=== PATIENT | female | born 1960 | race Hispanic/Latino ===

== ENCOUNTER 2020-07-23 00:15 | Emergency (ER) | payer OTHER, SELFPAY ==
[2020-07-23] VITALS (9 sets, daily range): BP systolic 115–138; BP diastolic 53–79; PULSE 81–118; RESP 18–22; TEMP 36.6; O2SAT 98–100
--- NOTE | ~2020-07-23 | CT_ITS ---
EXAMINATION: CTA brain carotid DATE: 07/23/2020 02:02 INDICATION: Dizziness. Photophobia. Weakness. TECHNIQUE: Computed tomographic angiography (CTA) of the head was performed without and with 100 mL O mnipaque-350 intravenous contrast. CTA of the neck was performed with intravenous contrast. Automated exposure control and iterative reconstruction technique were employed. The dose-length product was 1 563.40 mGy-cm. Maximum intensity projection and volume rendered 3D-reconstructions were created by william rowan technologist on a separate workstation. COMPARISON: Head CT 09/26/2012 FINDINGS: HEAD CTA: There is no intracranial hemorrhage, acute infarction, or abnormal intracranial mass lesion . The ventricles are normal in size. There is mild mucosal thickening in the ethmoid sinuses. The mas toid air cells are normal. The orbits are normal. The vertebral arteries are codominant. There is no significant stenosis of basilar artery or the posterior cerebral arteries. There is no significant st enosis of the intracranial internal carotid arteries or anterior or middle cerebral arteries. Anterio r communicating artery is normal. Right posterior communicating artery is normal. A left posterior co mmunicating artery is not identified. There is no aneurysm. NECK CTA: There are no pathologically enlarged lymph nodes. There is no significant stenosis of the v ertebral arteries. There is no visible plaque in the proximal internal carotid arteries. There is 0% stenosis of the proximal right internal carotid artery relative to normal distal artery lumen diamete r (NASCET criteria). There is 0% stenosis of the proximal left internal carotid artery relative to no rmal distal artery lumen diameter. There is moderate cervical spondylosis. IMPRESSION: 1. Normal brain. No aneurysm or significant intracranial arterial stenosis. 2. 0% stenosis of the proximal internal carotid arteries relative to normal distal artery lumen diam eters (NASCET criteria). Reviewed, dictated and finalized at location A. IMPRESSION: 1. Normal brain. No aneurysm or significant intracranial arterial stenosis. 2. 0% stenosis of the proximal internal carotid arteries relative to normal di stal artery lumen diameters (NASCET criteria).
--- NOTE | 2020-07-23 00:52 | ECG_ITS ---
Measurements Intervals [place] Rate: 101 P: 56 OK: 184 QRS: 14 QRSD: 80 T: 30 QT: 338 QTc: 439 Interpretive Statements SINUS TACHYCARDIA BORDERLINE R WAVE PROGRESSION, ANTERIOR LEADS BORDERLINE ECG Electronically Signed On 07-23-2020 7:15:06 CDT by Issa Richey D.O.
[2020-07-23 01:06] LABS: Basophils Percent Auto 0.5 % (0.2-1.2); Eosinophils Absolute Auto 0.1 K/mm3 (0-0.3); Eosinophils Percent Auto 1.7 % (0-4.4); Hematocrit 32.1 % (37.0-47.0); Hemoglobin 10.3 g/dL (12.0-15.0); Immature Granulocyte Absolute 0.01 K/mm3 (0.00-0.031); Immature Granulocyte Percent A 0.2 % (0-0.5); Lymphocytes Absolute Auto 2.16 K/mm3 (0.9-3.2); Lymphocytes Percent Auto 36.4 % (18.3-44.2); Mean Corpuscular HGB Conc 32.1 g/dl (32-36); Mean Corpuscular Hemoglobin 28.5 pg (26-34); Mean Corpuscular Volume 88.9 fl (80-100); Mean Platelet Volume 8.5 fl (7.4-10.4); Monocytes Absolute Auto 0.4 K/mm3 (0.1-0.6); Monocytes Percent Auto 7.3 % (2.6-8.5); Neutrophils Absolute Auto 3.2 K/mm3 (1.3-6.7); Neutrophils Percent Auto 53.9 % (45.5-73.1); Platelet Count Result 305 k/mm3 (150-375); Red Blood Count 3.61 M/mm3 (4.2-5.4); Red Cell Distribution Width 13.2 % (11.5-14.5); White Blood Count 5.9 K/mm3 (4.5-10.0)
[2020-07-23] MEDS: MECLIZINE HCL 25 MG TABLET PO (01:06)
[2020-07-23 01:09] LABS: Add Urine Microscopic? YES; Appearance Urine Clear (Clear); Bilirubin Urine Negative (Negative); Blood Urine 1+ (Negative); Color Urine Straw (Yellow); Glucose Urine UA Negative (Negative); Ketones Urine Negative (Negative); Leukocyte Esterase Ur Negative LEU/UL (Negative); Mucus Urine Rare /lpf; Nitrate Urine Negative (Negative); Protein Urine Negative (Negative); RBC Urine 0-2 /hpf (0-2); Specific Grav Ur 1.009 (1.001-1.035); Urobilinogen Urine Negative mg/dL (<2.0); WBC Urine 0-3 /hpf
[2020-07-23 01:16] LABS: INR 0.8; Partial Thromboplastin Time 26.7 SECONDS (22.3-36.8)
[2020-07-23 01:19] LABS: Alanine Aminotransferase 17 U/L (4-35); Albumin Level 4.2 g/dL (3.5-5.1); Alkaline Phosphatase 107 U/L (38-126); Anion Gap 6 mmol/L (8-16); Aspartate Amino Transferase 26 U/L (14-36); Bilirubin,Total < 0.1 mg/dL (0.2-1.3); Blood Urea Nitrogen 19 mg/dL (7-17); Calcium 9.3 mg/dL (8.4-10.2); Carbon Dioxide 30 mmol/L (22-30); Chloride 100 mmol/L (98-107); Estimated CRCL calculation 84 ml/min; Estimated Glomerular Filt Rate > 60; Glucose 161 mg/dL (65-105); Potassium 4.5 mmol/L (3.4-5.0); Sodium 136 mmol/L (137-145)
--- NOTE | 2020-07-23 01:25 | ED.DIZZY ---
HPI - Dizziness General Chief Complaint: Dizziness Stated Complaint: dizziness Time Seen by Provider: 07/23/20 00:23 Source: patient and family Mode of arrival: ambulatory Limitations: language barrier (peruvian speaking but understands welsh) History of Present Illness HPI Narrative: This patient is a 60 year old female who presents for evaluation dizziness. She reports her dizziness started 3 hours ago when she was getting off the couch. She was trying to stand up and she was dizziness. She reports she has history of vertigo but this is worse. She also reports she felt like she was going to pass out. She denies headache but she has photophobia. She denies focal weakness. She does states she feels like both legs are weak. Related Data Home Medications Medication Instructions Recorded Confirmed citalopram 20 mg PO DAILY 07/23/20 metformin 500 mg PO BID 07/23/20 metoprolol succinate 100 mg PO DAILY 07/23/20 07/23/20 omeprazole 20 mg PO DAILY 07/23/20 Allergies Allergy/AdvReac Type Severity Reaction Status Date / Time No Known Allergies Allergy Unverified 03/04/19 09:06 Review of Systems Review of Systems: All systems reviewed & are unremarkable except as noted in HPI and below Constitutional: Constitutional: Denies chills and Denies fever(s) Eyes: Eyes: Reports photophobia ENT: Reports dizziness, Denies nasal congestion and Denies sore throat Cardiovascular: Cardiovascular: Denies chest pain Respiratory: Respiratory: Denies cough and Denies dyspnea Gastrointestinal: Gastrointestinal: Denies abdominal pain, Denies diarrhea, Denies nausea and Denies vomiting Neurologic: Reports vertigo, Reports dizziness, Denies headache(s), Denies focal weakness and Reports weakness PMFSH Past Medical History Medical History (Updated 07/23/20 @ 05:23 by Saskia Becerra MD) Diabetes mellitus Hypertension Vertigo Surgical History Surgical History (Updated 07/23/20 @ 01:26 by Saskia Becerra MD) H/O: hysterectomy Hx of cholecystectomy Exam Narrative: Exam Narrative: GENERAL: Well-appearing, well-nourished, and in no acute distress. HEAD: Normocephalic, atraumatic EYES: PERRLA and EOMI, conjunctiva clear without discharge EARS: TM's clear bilaterally without erythema or dullness NOSE: Nares clear, no rhinorrhea or epistaxis THROAT:Mucous membranes moist, Oropharynx normal without erythema, exudate, peritonsillar swelling or fluctuance NECK: Supple, without lymphadenopathy or mass RESPIRATORY: No respiratory distress, Airway patent, Respirations non-labored, Clear to auscultation without rales, rhonchi or wheeze HEART: Regular rate and rhythm. No murmur heard. Normal peripheral pulses. ABDOMEN: Soft, nontender, nondistended, normal active bowel sounds. No masses. No rebound or guarding, No organomegaly. EXTREMITIES: No edema, normal strength with full range of motion. SKIN: Warm, dry, normal color without rash NEURO: Alert and oriented x3. CN 2-12 grossly intact. No focal deficits. PSYCH: Normal mood and affect. Neuro: General: patient oriented x3, moves all extremities, no focal motor deficits and CN's II-XI intact bilaterally Cranial nerves: Yes Nystagmus not present Speech: normal speech Gait exam (Neuro): Normal gait present Coordination: [id number] test normal and [id number] test normal Course Reevaluation(s) Reevaluation #1: PAtient states she feels much better. She is able to walk with steady gait. Dizziness much improved Date: 07/23/20 Time: 05:20 Vital Signs Vital signs: Vital Signs Temperature 97.9 F 07/23/20 00:21 Pulse Rate 98 07/23/20 00:21 Respiratory Rate 22 H 07/23/20 00:21 Blood Pressure 130/78 07/23/20 00:21 Pulse Oximetry 100 07/23/20 00:21 Temperature 97.9 F 07/23/20 00:21 Pulse Rate 84 07/23/20 05:10 Respiratory Rate 18 07/23/20 05:10 Blood Pressure 121/61 07/23/20 05:10 Pulse Oximetry 99 07/23/20 05:10 MDM
[2020-07-23] MEDS: LACTATED RINGERS 1,000 ML 999 ML IV CONT (01:51)
--- NOTE | 2020-07-23 05:40 | PC.NURSE ---
Patient and son advised not to take her Metformin x [address] scan with contrast that she received
== END 2020-07-23 05:45 | disposition home or self-care (01) ==
PROVIDERS: Emergency Provider General Practice; PCP Family Medicine
DX: R42 Dizziness and giddiness (principal); E11.9 Type 2 diabetes mellitus without complications; I10 Essential (primary) hypertension; Z79.84 Long term (current) use of oral hypoglycemic drugs; R00.0 Tachycardia, unspecified; R94.31 Abnormal electrocardiogram [ECG] [EKG]
CPT/HCPCS: 36415; 70496; 70498; 80053; 81001; 85025; 85610; 85730; 93005; 96361; 96374; 99284; A9270; J3360; J7120; Q9967

== ENCOUNTER → 2020-11-20 15:52 | Outpatient (CLI) | payer OTHER, SELFPAY ==
--- NOTE | ~2020-11-20 | MM_ITS ---
EXAMINATION: MM screening hanna BI w jamari HISTORY: Screening TECHNIQUE: Craniocaudal and mediolateral oblique 3-D tomosynthesis images were obtained and synthetic 2-D images were generated. CAD analysis was submitted and interpreted. COMPARISON: Comparison to multiple prior studies sequentially, with oldest reviewed study dated 02/11. BREAST PARENCHYMAL COMPOSITION: There are scattered areas of fibroglandular density. FINDINGS: There is no evidence of suspicious mass, calcification, or architectural distortion to sugg est malignancy in either breast. There has been no suspicious interval change. IMPRESSION: 1. No mammographic evidence of malignancy. 2. Recommend routine screening mammography in one year. BI-RADS Category 1: Negative Reviewed, dictated and finalized at location A. GE OPERATOR SUPERVISOR
== END ==
PROVIDERS: PCP Family Medicine; Visit Provider Family Medicine
DX: Z12.31 Encounter for screening mammogram for malignant neoplasm of breast (principal)
CPT/HCPCS: 77063; 77067

== ENCOUNTER → 2022-01-30 16:22 | Outpatient (CLI) | payer OTHER, SELFPAY ==
--- NOTE | ~2022-01-30 | MM_ITS ---
EXAMINATION: MM screening hanna BI w jamari HISTORY: Screening TECHNIQUE: Craniocaudal and mediolateral oblique 3-D tomosynthesis images were obtained and synthetic 2-D images were generated. CAD analysis was submitted and interpreted. COMPARISON: Comparison to multiple prior studies sequentially, with oldest reviewed study dated 02/09. BREAST PARENCHYMAL COMPOSITION: There are scattered areas of fibroglandular density. FINDINGS: There is no evidence of suspicious mass, calcification, or architectural distortion to sugg est malignancy in either breast. There has been no suspicious interval change. IMPRESSION: 1. No mammographic evidence of malignancy. 2. Recommend routine screening mammography in one year. BI-RADS Category 1: Negative Reviewed, dictated and finalized at location A. ERCIAL PRODUCTION EDITOR
== END ==
PROVIDERS: Visit Provider Obstetrics & Gynecology
DX: Z12.31 Encounter for screening mammogram for malignant neoplasm of breast (principal)
CPT/HCPCS: 77063; 77067

== ENCOUNTER 2022-04-16 17:38 | Emergency (ER) | payer OTHER, SELFPAY ==
--- NOTE | ~2022-04-16 | CT_ITS ---
EXAMINATION: CT brain wo con DATE: 04/16/2022 20:57 INDICATION: fall . TECHNIQUE: Computed tomography (CT) of the head was performed without intravenous contrast. The mA wa s adjusted according to patient size. Iterative reconstruction technique was employed. The dose-lengt h product was 529.67 mGy-cm. COMPARISON: 07/23/2020. FINDINGS: No acute intracranial hemorrhage or extra-axial fluid collection. No hydrocephalus, mass, or herniation. No acute ischemic infarct. Unremarkable dural venous sinus attenuation. No acute osseous abnormality. The aerated spaces are clear. Mild atrophy and chronic white matter change. IMPRESSION: No acute intracranial process. Reviewed, dictated and finalized at location K.
--- NOTE | ~2022-04-16 | XR_ITS ---
EXAM: XR ankle RT min 3V DATE: 04/16/2022 17:52 HISTORY: fall TODAY, injury, deformity, SWELLING TO LATERAL SIDE . COMPARISON: None available. FINDINGS: Decreased mineralization. Widening of the lateral aspect of the tibial plafond suggesting ligamentous laxity. Subtle cortical irregularity along the medial talus may represent a small impacti on or avulsion fracture depending on the injury mechanism. No lytic or blastic lesion. Achilles and p lantar enthesopathy. No erosion or periosteal change. Soft tissues within normal limits. IMPRESSION: Possible impaction or avulsion fracture along the medial talus correlate with tenderness and injury mechanism. Lateral ligamentous laxity is suspected. Reviewed, dictated and finalized at location K. IMPRESSION: Possible impaction or avulsion fracture along the medial talus derrick elate with tenderness and injury mechanism. Lateral ligamentous laxity is suspe cted.
--- NOTE | ~2022-04-16 | CT_ITS ---
CT OF RIGHT ANKLE EXAMINATION: CT ankle RT wo con DATE: 04/16/2022 19:50 INDICATION: Fracture. TECHNIQUE: Computed tomography (CT) of the right ankle was performed without intravenous contrast. Au tomated exposure control and iterative reconstruction technique were employed. The dose-length produc t was 412.71 mGy-cm. COMPARISON: Right ankle x-rays, same date FINDINGS: Limitations: None Bones: Small osseous fragments at the tips of the medial and lateral malleoli likely represent small avulsion fractures. Slight lateral widening of the tibial plafond. Small osseous fragment adjacent to the medial aspect of the anterior talar process. Comminuted but nondisplaced fracture of the anterio r calcaneal process. Achilles and plantar enthesopathy. Soft Tissues:Soft tissue swelling about the ankle. The major flexor and extensor tendons are intact. Fluid: Large volume ankle joint fluid. IMPRESSION: Minimally displaced fracture at the medial aspect of the anterior talar process is confirmed. Multipl e additional fractures are identified including: small bilateral malleolus avulsion fractures and a c omminuted, nondisplaced anterior calcaneal process fracture. Reviewed, dictated and finalized at location K. IMPRESSION: Minimally displaced fracture at the medial aspect of the anterior talar process is confirmed. Multiple additional fractures are identified including: small bi lateral malleolus avulsion fractures and a comminuted, nondisplaced anterior ca lcaneal process fracture.
[2022-04-16 17:53] VITALS: BP 117/67; PULSE 82; RESP 16; TEMP 37.1; O2SAT 100
[2022-04-16 19:16] VITALS: BP 110/54; PULSE 75; RESP 18; O2SAT 100
--- NOTE | 2022-04-16 19:16 | PC.NURSE ---
Assuming care of pt.
--- NOTE | 2022-04-16 19:44 | ED.LOWEXIN ---
HPI - Extremity Injury (Lower) General Chief Complaint: Extremity Injury, Lower Stated Complaint: right foot injury Time Seen by Provider: 04/16/22 19:19 Source: patient History of Present Illness HPI Narrative: Patient presents with right ankle pain. Patient reports she was getting out of her pickup truck when she slipped landing sure exactly how she fell but she reports pain to the right ankle and swelling. Pain is achy, constant, worse with attempting to move her ankle, reports paresthesias to the right foot. She denies striking her head she denies any loss of conscious denies any other focal areas of pain. Related Data Home Medications Medication Instructions Recorded Confirmed citalopram 20 mg tablet 20 mg PO DAILY 07/23/20 metformin 500 mg tablet 500 mg PO BID 07/23/20 metoprolol succinate 100 mg 100 mg PO DAILY 07/23/20 07/23/20 tablet,extended release 24 hr omeprazole 20 mg tablet,delayed 20 mg PO DAILY 07/23/20 release Allergies Allergy/AdvReac Type Severity Reaction Status Date / Time No Known Allergies Allergy Verified 04/16/22 17:59 Review of Systems Review of Systems: CONSTITUTIONAL: Denies fever, chills, or sweats. EYES: Denies visual changes, redness, or discharge. ENT: Denies rhinorrhea, congestion, sore throat, or otalgia. CARDIOVASCULAR: Denies chest pain, palpitations, or edema. RESPIRATORY: Denies cough or dyspnea. GASTROINTESTINAL: Denies abdominal pain, nausea, vomiting, or diarrhea. GENITOURINARY: Denies dysuria or hematuria. SKIN: Denies rash or itching. MUSCULOSKELETAL: Denies back pain, or myalgia. NEUROLOGIC: Denies headache, numbness, dizziness, or weakness. PSYCHIATRIC: Denies anxiety or depression. All systems reviewed & are unremarkable except as noted in HPI and below PMFSH Past Medical History Medical History (Updated 04/16/22 @ 21:21 by Richard Falcon MD) Ankle fracture Diabetes mellitus Hypertension Vertigo Surgical History Surgical History H/O: hysterectomy Hx of cholecystectomy Exam Narrative: GENERAL: Well-appearing, well-nourished, and in no acute distress. HEAD: Normocephalic, atraumatic. EYES: PERRLA and EOMI. ENT: Nares clear, no rhinorrhea or epistaxis. Mucous membranes moist. NECK: Supple. No masses. No JVD CHEST: Clear to auscultation. No respiratory distress. No wheezes rales or rhonchi EXTREMITIES: Edema and ecchymosis to the right ankle with diffuse tenderness cap refill less than 2 seconds sensation intact to light touch SKIN: Warm, dry, no rash. NEURO: No focal deficits. Alert and oriented x3. PSYCH: Normal mood and affect. Course Reevaluation(s) Reevaluation #1: Patient is comfortable results plan reviewed with patient. Patient is comfortable outpatient plan. Splint in place distal extremity neurovascular intact Date: 04/16/22 Time: 21:16 Consultations Consultation #1: Case up to Dr. Clements who recommended additional imaging and will follow up with the patient as an outpatient. Date: 04/16/22 Time: 19:46 Vital Signs Vital signs: Vital Signs Temperature 37.1 C 04/16/22 17:53 Pulse Rate 82 04/16/22 17:53 Respiratory Rate 16 04/16/22 17:53 Blood Pressure 117/67 04/16/22 17:53 Pulse Oximetry 100 04/16/22 17:53 Oxygen Delivery Room Air 04/16/22 17:53 Temperature 37.1 C 04/16/22 17:53 Pulse Rate 75 04/16/22 19:16 Respiratory Rate 18 04/16/22 19:16 Blood Pressure 110/54 L 04/16/22 19:16 Pulse Oximetry 100 04/16/22 19:16 Oxygen Delivery Room Air 04/16/22 17:53 MDM - Extremity Injury (Lower) MDM Narrative Medical decision making narrative: H&P as above, vss, pt looks clinically well, exam right swollen ankle no focal neurovascular compromise, imaging with comminuted ankle fracture, additional labs/img considered, symptomatic relief available as needed, on reevaluation pt continues to looks clinically well. Suspect isolate
[2022-04-16] MEDS: oxyCODONE/ACETAMINOPHEN (*CRX) 5-325 MG TABLET 1 TABLET PO (20:14)
[2022-04-16 22:08] VITALS: BP 112/67; PULSE 65; RESP 18; O2SAT 100
--- NOTE | 2022-04-16 22:09 | PC.NURSE ---
Rn assessed splint to right ankle PMS intact.
== END 2022-04-16 22:09 | disposition home or self-care (01) ==
PROVIDERS: Emergency Provider Emergency Medicine; PCP Nurse Practitioner Family
DX: S92.191A Other fracture of right talus, initial encounter for closed fracture (principal); E11.9 Type 2 diabetes mellitus without complications; I10 Essential (primary) hypertension; Z79.84 Long term (current) use of oral hypoglycemic drugs; V58.4XXA Person boarding or alighting a pick-up truck or van injured in noncollision transport accident, initial encounter
CPT/HCPCS: 29515; 70450; 73610; 73700; 99284; A9270

== ENCOUNTER 2022-04-17 | Emergency (ER) | payer OTHER, SELFPAY ==
--- NOTE | ~2022-04-17 | CT_ITS ---
EXAMINATION: CT brain wo con DATE: 04/17/2022 00:44 INDICATION: Syncope. Head injury. Headache. TECHNIQUE: Computed tomography (CT) of the head was performed without intravenous contrast. The mA wa s adjusted according to patient size. Iterative reconstruction technique was employed. The dose-lengt h product was 605.33 mGy-cm. COMPARISON: Head CT 04/16/2022 FINDINGS: There is no intracranial hemorrhage, acute infarction, or abnormal intracranial mass lesion . The ventricles are normal in size. There is mild mucosal thickening in the paranasal sinuses. The o rbits are normal. The mastoid air cells are normal. IMPRESSION: 1. Normal brain. Reviewed, dictated and finalized at location A. IMPRESSION: 1. Normal brain.
[2022-04-17 00:03] VITALS: BP 120/66; PULSE 80; RESP 20; TEMP 36.7; O2SAT 100
[2022-04-17 00:07] VITALS: PULSE 80
--- NOTE | 2022-04-17 00:28 | ECG_ITS ---
Measurements Intervals [place] Rate: 85 P: 55 RI: 170 QRS: 35 QRSD: 78 T: 40 QT: 377 QTc: 450 Interpretive Statements SINUS RHYTHM WITH SINUS ARRHYTHMIA NORMAL ECG Electronically Signed On 04-17-2022 6:34:20 CDT by Issa Richey D.O.
--- NOTE | 2022-04-17 00:42 | ED.SYNCOPE ---
HPI - Syncope General Chief Complaint: Syncope Stated Complaint: glf with headache and loc Time Seen by Provider: 04/17/22 00:25 History of Present Illness HPI narrative: Patient is a 62-year-old female brought in by EMS after a syncopal episode at home. Patient was recently discharged here approximately an hour ago after being diagnosed with a ankle/foot fracture. Patient states that she was given Percocet for pain which she took tonight, also took her diabetic medication along with her blood pressure medication prior to walking to her bedroom. Son states as her mother was going to her bedroom, he heard a thump and when he went upstairs found his mother on the floor, was only out for only a few seconds , then he called EMS. Patient admits to having a headache possibly hit her head on the floor, denies any neck, chest, abdomen, back, pelvis or any extremity pain/injury. Related Data Home Medications Medication Instructions Recorded Confirmed citalopram 20 mg tablet 20 mg PO DAILY 07/23/20 metformin 500 mg tablet 500 mg PO BID 07/23/20 metoprolol succinate 100 mg 100 mg PO DAILY 07/23/20 07/23/20 tablet,extended release 24 hr omeprazole 20 mg tablet,delayed 20 mg PO DAILY 07/23/20 release Allergies Allergy/AdvReac Type Severity Reaction Status Date / Time No Known Allergies Allergy Verified 04/16/22 17:59 Review of Systems Review of Systems: All systems reviewed & are unremarkable except as noted in HPI and below Constitutional: Constitutional: Denies body ache(s), Denies chills, Denies excessive sweating, Denies fatigue, Denies fever(s), Denies headache(s), Denies lethargy, Denies malaise, Denies weakness and Denies weight loss Eyes: Eyes: Denies blurry vision, Denies change in vision and Denies loss of vision ENT: Denies dizziness, Denies ear discharge, Denies lip swelling, Denies epistaxis, Denies nasal congestion, Denies neck pain, Denies throat swelling and Denies tongue swelling Cardiovascular: Cardiovascular: Denies chest pain, Denies chest pain at rest, Denies chest pain with activity, Denies diaphoresis, Denies rapid heart rate, Denies edema, Denies irregular heart rhythm, Denies lightheadedness, Denies palpitations, Denies dyspnea and Denies dyspnea on exertion Respiratory: Respiratory: Denies chest congestion, Denies cough, Denies hemoptysis, Denies dyspnea and Denies dyspnea on exertion Gastrointestinal: Gastrointestinal: Denies abdominal pain, Denies melena, Denies hematochezia, Denies diarrhea, Denies nausea, Denies vomiting and Denies hematemesis Musculoskeletal: Musculoskeletal: Denies abnormal gait, Denies joint swelling, Denies neck pain and Denies numbness Neurologic: Denies Abnormal speech present, Denies abnormal gait, Denies confusion, Denies dizziness, Denies focal weakness, Denies loss of vision, Denies numbness, Denies Other visual disturbances, Denies Sensory deficit (Neuro) and Denies weakness Psychiatric: Psychiatric: Denies confusion, Denies depression, Denies auditory hallucinations, Denies homicidal ideation and Denies suicidal ideation Endocrine: Endocrine: Denies cold intolerance, Denies excessive sweating, Denies fatigue, Denies heat intolerance and Denies palpitations Hematologic/Lymphatic: Hematologic/Lymphatic: Denies easy bleeding and Denies easy bruising Allergic/Immunologic: Allergic/Immunologic: Denies lip swelling, Denies throat swelling and Denies tongue swelling PMFSH Past Medical History Medical History Ankle fracture Diabetes mellitus Hypertension Vertigo Surgical History Surgical History H/O: hysterectomy Hx of cholecystectomy Comments Social history: Non-smoker no EtOH or drug use Exam Const: General: cooperative, healthy appearing, comfortable, no acute distress, well developed, alert and awake; No confusion Orientation/consciousness: orie
[2022-04-17 00:53] LABS: Basophils Percent Auto 0.2 % (0.2-1.2); Eosinophils Percent Auto 0.3 % (0-4.4); Hematocrit 33.1 % (37.0-47.0); Hemoglobin 10.6 g/dL (12.0-15.0); Immature Granulocyte Absolute 0.02 K/mm3 (0.00-0.031); Immature Granulocyte Percent A 0.2 % (0-0.5); Lymphocytes Absolute Auto 2.06 K/mm3 (0.9-3.2); Lymphocytes Percent Auto 20.8 % (18.3-44.2); Mean Corpuscular Hemoglobin 28.3 pg (26-34); Mean Corpuscular Volume 88.3 fl (80-100); Monocytes Absolute Auto 0.6 K/mm3 (0.1-0.6); Monocytes Percent Auto 6.4 % (2.6-8.5); Neutrophils Absolute Auto 7.2 K/mm3 (1.3-6.7); Neutrophils Percent Auto 72.1 % (45.5-73.1); Platelet Count Result 312 k/mm3 (150-375); Red Blood Count 3.75 M/mm3 (4.2-5.4); Red Cell Distribution Width 13.4 % (11.5-14.5); White Blood Count 9.9 K/mm3 (4.5-10.0)
[2022-04-17 01:08] LABS: Anion Gap 7 mmol/L (8-16); Blood Urea Nitrogen 11 mg/dL (7-17); Calcium 8.8 mg/dL (8.4-10.2); Carbon Dioxide 27 mmol/L (22-30); Chloride 101 mmol/L (98-107); Estimated CRCL calculation 73 ml/min; Estimated Glomerular Filt Rate > 60; Glucose 144 mg/dL (65-110); Potassium 3.6 mmol/L (3.4-5.0); Sodium 135 mmol/L (137-145)
[2022-04-17 01:18] LABS: Troponin I < 0.012 ng/mL (0.000-0.034)
[2022-04-17] MEDS: SODIUM CHLORIDE 0.9% IV 1,000 ML 999 ML IV CONT (01:33)
== END 2022-04-17 02:22 | disposition home or self-care (01) ==
PROVIDERS: Emergency Provider Emergency Medicine; PCP Nurse Practitioner Family
DX: R55 Syncope and collapse (principal); E11.9 Type 2 diabetes mellitus without complications; I10 Essential (primary) hypertension; Z79.4 Long term (current) use of insulin
CPT/HCPCS: 36415; 70450; 80048; 84484; 85025; 93005; 96360; 99284; J7030

== ENCOUNTER 2022-10-27 21:45 | Emergency (ER) | payer OTHER, SELFPAY ==
[2022-10-27 21:54] VITALS: BP 136/69; PULSE 79; RESP 18; O2SAT 100
--- NOTE | 2022-10-27 22:58 | PC.NURSE ---
called for patient no answer at this time
== END 2022-10-27 22:58 | disposition left against medical advice (07) ==
PROVIDERS: Emergency Provider Nurse Practitioner Family; PCP Nurse Practitioner Family
DX: R51.9 Headache, unspecified (principal)
CPT/HCPCS: 99199

== ENCOUNTER 2022-11-12 06:38 | Emergency (ER) | payer OTHER, SELFPAY ==
--- NOTE | ~2022-11-12 | CT_ITS ---
EXAMINATION: CT brain wo con DATE: 11/12/2022 07:37 INDICATION: Headache TECHNIQUE: Computed tomography (CT) of the head was performed without intravenous contrast. Sagittal and coronal reconstructions were performed. The mA was adjusted according to patient size. Iterative reconstruction technique was employed. The dose-length product was 605.33 mGy-cm. COMPARISON: head CT dated 04/17/2022 FINDINGS: No acute intracranial hemorrhage, acute infarction or abnormal extra axial fluid collection. Ventricl es are normal and symmetric. No mass/mass effect. The orbits, paranasal sinuses and mastoid air cells are normal. IMPRESSION: 1. Normal head CT. Reviewed, dictated and finalized at location A. ADJUSTER IMPRESSION: 1. Normal head CT.
[2022-11-12 06:43] VITALS: BP 143/60; PULSE 72; RESP 16; TEMP 36.7; O2SAT 100
--- NOTE | 2022-11-12 07:19 | ED.HA ---
HPI - Headache General Chief Complaint: Headache Stated Complaint: Headache to right side Time Seen by Provider: 11/12/22 07:11 History of Present Illness HPI Narrative: Pt presents with intermittent CAMPOS's since a syncopal episode and fall in March where she struick her head n the door. Pt denies other neuro symptoms. Pt says CAMPOS's come and go and tylenol doesn't do much. Nothing precipitates or relieves. Pt had CT after fall in March which was normal. Related Data Home Medications Medication Instructions Recorded Confirmed citalopram 20 mg tablet 20 mg PO DAILY 07/23/20 04/23/22 metformin 500 mg tablet 500 mg PO BID 07/23/20 04/23/22 metoprolol succinate 100 mg 100 mg PO DAILY 07/23/20 04/23/22 tablet,extended release 24 hr omeprazole 20 mg tablet,delayed 20 mg PO DAILY 07/23/20 04/23/22 release Allergies Allergy/AdvReac Type Severity Reaction Status Date / Time No Known Allergies Allergy Verified 11/12/22 06:40 Review of Systems Review of Systems: All systems reviewed & are unremarkable except as noted in HPI and below PMFSH Past Medical History Medical History Ankle fracture Diabetes mellitus History of bruising easily Hypertension Vertigo Surgical History Surgical History H/O: (~1994) H/O: hysterectomy Hx of cholecystectomy (~1990) Family History Family History Unknown Diabetes mellitus Social History Social History Smoking status: Never smoker Exam Const: General: healthy appearing Nutritional Appearance: well nourished Orientation/consciousness: patient oriented x3 Limitations: no limitations and language barrier (minimal as family translated) HENMT: Head: normal to inspection Ears: TM's normal bilaterally Mouth: Yes Normal oral and palatal mucosa present Teeth and gingiva: dentition normal Throat: posterior oropharynx normal Eyes: Conjunctivae: conjunctivae normal Pupils: Equal, round and reactive pupils present EOM: EOMs intact bilaterally Direct Ophthalmoscopy: no photophobia Neck: Neck: normal visual inspection Chest: Chest palpation & inspection: normal inspection of the chest Resp: Effort & Inspection: normal respiratory effort Auscultation: clear to auscultation bilaterally Cardio: Rate: regular rate Rhythm: regular rhythm GI: GI Palp: Yes Soft to palpation Auscultation: normal bowel sounds Skin: General skin exam: normal color Neuro: General: patient oriented x3, moves all extremities, no meningeal signs, no focal motor deficits and CN's II-XI intact bilaterally Cranial nerves: Yes Nystagmus not present Speech: normal speech Extrem: General: normal to inspection Psych: Mental Status: mental status grossly normal Affect: normal affect Attitude: cooperative Course Vital Signs Vital signs: Vital Signs Temperature 98.1 F 11/12/22 06:43 Pulse Rate 72 11/12/22 06:43 Respiratory Rate 16 11/12/22 06:43 Blood Pressure 143/60 H 11/12/22 06:43 Pulse Oximetry 100 11/12/22 06:43 Oxygen Delivery Room Air 11/12/22 06:43 Temperature 98.1 F 11/12/22 06:43 Pulse Rate 74 11/12/22 08:41 Respiratory Rate 15 11/12/22 08:41 Blood Pressure 133/69 11/12/22 08:41 Pulse Oximetry 99 11/12/22 08:41 Oxygen Delivery Room Air 11/12/22 06:43 MDM - Headache Differential Diagnosis Differential diagnosis: Likely migraine, tension headache, subarachnoid hemorrhage, headache and postconcussion syndrome Medical Records Attestation: I reviewed the patient's medical records. Lab Data Attestation: I reviewed the patient's lab results. Discharge Plan Discharge Clinical Impression: Migraine, Headache Patient Disposition: Home, Self-Care Condition: Stable Instructions: Antibiotic Form
[2022-11-12 08:41] VITALS: BP 133/69; PULSE 74; RESP 15; O2SAT 99
== END 2022-11-12 08:42 | disposition home or self-care (01) ==
PROVIDERS: Emergency Provider Emergency Medicine; PCP Nurse Practitioner Family
DX: G43.909 Migraine, unspecified, not intractable, without status migrainosus (principal); E11.9 Type 2 diabetes mellitus without complications; I10 Essential (primary) hypertension; Z90.710 Acquired absence of both cervix and uterus; Z79.84 Long term (current) use of oral hypoglycemic drugs
CPT/HCPCS: 70450; 99284

== ENCOUNTER 2022-11-19 12:21 | Outpatient (CLI) | payer OTHER, SELFPAY ==
--- NOTE | ~2022-11-19 | XR_ITS ---
Right Knee Technique: AP, lateral, and sunrise views were obtained. Clinical History: Pain Findings: No fracture or dislocation is seen. Osseous alignment is anatomic. Joint spaces are preserv ed without degenerative or erosive change. Soft tissues are unremarkable. No joint effusion is seen. Impression: Unremarkable right knee radiographs. Reviewed, dictated and finalized at location . OWS LAPTOP TECHNICIAN Impression: Unremarkable right knee radiographs.
--- NOTE | ~2022-11-19 | XR_ITS ---
Left Knee Technique: AP, lateral, and sunrise views were obtained. Clinical History: Pain Findings: No fracture or dislocation is seen. Osseous alignment is anatomic. Joint spaces are preserv ed without degenerative or erosive change. Soft tissues are unremarkable. No joint effusion is seen. Impression: Unremarkable left knee radiographs. Reviewed, dictated and finalized at location . RITY PATROL OFFICER Impression: Unremarkable left knee radiographs.
== END 2022-11-19 12:22 | disposition home or self-care (01) ==
PROVIDERS: PCP Nurse Practitioner Family; Visit Provider Physician Assistant
DX: M25.561 Pain in right knee (principal); M25.562 Pain in left knee
CPT/HCPCS: 73562

== ENCOUNTER 2023-01-02 19:53 | Emergency (ER) | payer OTHER, SELFPAY ==
[2023-01-02] VITALS (16 sets, daily range): BP systolic 129–141; BP diastolic 67–78; PULSE 87–100; RESP 14–30; TEMP 35.9; O2SAT 96–100
[2023-01-02 20:02] LABS: Glucose Point of Care 159 mg/dl (65-105)
--- NOTE | 2023-01-02 20:03 | ECG_ITS ---
Measurements Intervals [place] Rate: 93 P: 37 CT: 126 QRS: 17 QRSD: 114 T: 9 QT: 375 QTc: 467 Interpretive Statements SINUS RHYTHM NONSPECIFIC ST CHANGES COMPARED TO ECG 04/17/2022 01:03:42 NO SIGNIFICANT CHANGE Electronically Signed On 01-03-2023 8:38:11 LAUNCH OPERATOR by Yoana Gregg M.D.
[2023-01-02 20:30] LABS: Basophils Percent Auto 0.5 % (0.2-1.2); Eosinophils Percent Auto 0.1 % (0-4.4); Hematocrit 34.7 % (37.0-47.0); Hemoglobin 11.6 g/dL (12.0-15.0); Immature Granulocyte Absolute 0.01 K/mm3 (0.00-0.031); Immature Granulocyte Percent A 0.1 % (0-0.5); Lymphocytes Absolute Auto 2.22 K/mm3 (0.9-3.2); Lymphocytes Percent Auto 27.2 % (18.3-44.2); Mean Corpuscular HGB Conc 33.4 g/dl (32-36); Mean Corpuscular Hemoglobin 28.8 pg (26-34); Mean Corpuscular Volume 86.1 fl (80-100); Monocytes Absolute Auto 0.5 K/mm3 (0.1-0.6); Monocytes Percent Auto 6.1 % (2.6-8.5); Neutrophils Absolute Auto 5.4 K/mm3 (1.3-6.7); Platelet Count Result 371 k/mm3 (150-375); Red Blood Count 4.03 M/mm3 (4.2-5.4); Red Cell Distribution Width 13.4 % (11.5-14.5); White Blood Count 8.2 K/mm3 (4.5-10.0)
[2023-01-02 20:50] LABS: Alanine Aminotransferase 20 U/L (6-35); Albumin Level 4.7 g/dL (3.5-5.1); Alkaline Phosphatase 108 U/L (38-126); Anion Gap 14 mmol/L (8-16); Aspartate Amino Transferase 27 U/L (14-36); Bilirubin,Total 0.5 mg/dL (0.2-1.3); Blood Urea Nitrogen 14 mg/dL (7-17); Calcium 9.1 mg/dL (8.4-10.2); Carbon Dioxide 19 mmol/L (22-30); Chloride 103 mmol/L (98-107); Estimated CRCL calculation 70 ml/min; Estimated Glomerular Filt Rate > 60; Glucose 175 mg/dL (65-110); Potassium 3.7 mmol/L (3.4-5.0); Sodium 136 mmol/L (137-145)
--- NOTE | 2023-01-02 20:56 | ED.GENADULT ---
HPI - General Adult General Chief complaint: Dizziness Stated complaint: dizziness, chills Time Seen by Provider: 01/02/23 20:36 History of Present Illness HPI narrative: This is a 62-year-old Sudanese-speaking female presenting to ED with chief complaint of dizziness. Trim Mounter service was used for all communication. Trim Mounter was Mary Jane #[id number]. 62-year-old female presenting to ED with sudden onset of dizziness at 3:00 p.m. the patient notes that the dizziness is when she opens her eyes or moves her head. However she does state that it does not ever go away. He has also started developed cramping in her hands and feet as well as a dry mouth. She says that she has some shortness of breath and nausea but no chest pain, fever chills cough abdominal pain or urinary symptoms. She has a history of anxiety but no history of pain panic attacks. She denies double vision, dysarthria dysphagia or dystaxia. She is concerned that she is having a stroke. Patient has a history of vertigo. Related Data Home Medications Medication Instructions Recorded Confirmed citalopram 20 mg tablet 20 mg PO DAILY 07/23/20 04/23/22 metformin 500 mg tablet 500 mg PO BID 07/23/20 04/23/22 metoprolol succinate 100 mg 100 mg PO DAILY 07/23/20 04/23/22 tablet,extended release 24 hr omeprazole 20 mg tablet,delayed 20 mg PO DAILY 07/23/20 04/23/22 release Allergies Allergy/AdvReac Type Severity Reaction Status Date / Time No Known Allergies Allergy Verified 01/02/23 19:56 [facility] Past Medical History Medical History Ankle fracture Diabetes mellitus History of bruising easily Hypertension Vertigo Surgical History Surgical History H/O: (~1994) H/O: hysterectomy Hx of cholecystectomy (~1990) Family History Family History Unknown Diabetes mellitus Social History Social History Smoking status: Never smoker Exam Narrative: APPEARANCE: Patient is lying in bed with her eyes closed. She screams out in pain when the blood pressure cuff goes off. Head: atraumatic. EYES: EOMI, NOSE: Atraumatic NECK: Trachea midline RESPIRATORY: clearr to auscultation bilaterally CARDIOVASCULAR: slightly tachycardic ABDOMINAL: Non-distended nontender no guarding or rebound MUSCULOSKELETAl: No obvious deformities NEURO: Alert. Cranial nerves 2-12 grossly intact. Sensation light touch, motor function cerebellar function intact for 4 extremities. Gait exam was deferred. no nystagmus at rest. Test of skew is negative. Head impulse was indeterminate. SKIN:: Warm, dry. Normal color PSYCHIATRIC: Normal affect Course Vital Signs Vital signs: Vital Signs Temperature 96.6 F L 01/02/23 19:57 Pulse Rate 99 01/02/23 19:57 Respiratory Rate 22 H 01/02/23 19:57 Blood Pressure 141/67 H 01/02/23 19:57 Pulse Oximetry 100 01/02/23 19:57 Oxygen Delivery Room Air 01/02/23 19:57 Temperature 96.6 F L 01/02/23 20:01 Pulse Rate 99 01/02/23 22:36 Respiratory Rate 18 01/02/23 22:36 Blood Pressure 130/78 01/02/23 21:15 Pulse Oximetry 100 01/02/23 22:36 Oxygen Delivery Room Air 01/02/23 20:01 Medical Decision Making MDM Narrative Medical decision making narrative: -Presentation: 62-year-old Sudanese-speaking female with a history of vertigo presenting with dizziness, anxiety and cramping of her hands and feet. -DDX includes but is not limited to: Vertigo, anxiety, panic attack, posterior circulation stroke -Co-morbidities complicating care: Sudanese-speaking, hypertension, diabetes, vertigo, anxiety -Social determinants of health: patient lives with her , she is unemployed -External Chart Review: non -Hx from independent Sources: Terence [phone] -Discu
[2023-01-02] MEDS: MECLIZINE HCL 25 MG TABLET PO (21:12)
[2023-01-02] MEDS: LORazepam INJ (*CRX) 2 MG/ML VIAL 1 MG IV PUSH (21:12)
[2023-01-02] MEDS: SODIUM CHLORIDE 0.9% IV 2,000 ML 999 ML IV CONT (21:13)
--- NOTE | 2023-01-02 22:21 | ECG_ITS ---
Measurements Intervals [place] Rate: 153 P: ND: 0 QRS: 18 QRSD: 79 T: -24 QT: 241 QTc: 385 Interpretive Statements SUPRAVENTRICULAR TACHYCARDIA NONSPECIFIC ST & T-WAVE ABNORMALITY ABNORMAL RHYTHM ECG COMPARED TO ECG 01/02/2023 20:19:11 SUPRAVENTRICULAR TACHYCARDIA NOW PRESENT Electronically Signed On 01-06-2023 16:10:49 MACHINE INSTALLER by Ruiz Cardoza M.D.
--- NOTE | 2023-01-02 22:25 | PC.NURSE ---
YAQUELIN from Dr. Zeigler for 6mg adenosine.
[2023-01-02] MEDS: ADENOSINE IV SOLN 6 MG/2 ML VIAL IV PUSH (22:29)
--- NOTE | 2023-01-02 22:29 | ECG_ITS ---
Measurements Intervals [place] Rate: 124 P: TN: 329 QRS: 37 QRSD: 76 T: -15 QT: 318 QTc: 458 Interpretive Statements SUPRAVENTRICULAR TACHYCARDIA THAT TERMINATES INTO SINUS RHYTHM WITH PACS NONSPECIFIC ST & T-WAVE ABNORMALITY ABNORMAL RHYTHM ECG Electronically Signed On 01-06-2023 16:12:24 POWER BENDER OPERATOR by Ruiz Cardoza M.D.
[2023-01-03 00:12] VITALS: PULSE 96; RESP 16; O2SAT 98
[2023-01-03] MEDS: SCOPOLAMINE 1.5 MG PATCH TRANSDERM (00:14)
== END 2023-01-03 00:12 | disposition home or self-care (01) ==
PROVIDERS: Emergency Provider Emergency Medicine; PCP Nurse Practitioner Family
DX: R42 Dizziness and giddiness (principal); I47.1 Supraventricular tachycardia; E11.9 Type 2 diabetes mellitus without complications; I10 Essential (primary) hypertension; Z79.84 Long term (current) use of oral hypoglycemic drugs; Z90.710 Acquired absence of both cervix and uterus; R94.31 Abnormal electrocardiogram [ECG] [EKG]
CPT/HCPCS: 36415; 80053; 82948; 85025; 93005; 96361; 96374; 96375; 99284; A9270; J0153; J2060; J7030

== ENCOUNTER 2023-02-03 17:44 | Emergency (ER) | payer OTHER, SELFPAY ==
--- NOTE | 2023-02-03 17:48 | ED.URI ---
HPI - URI/Sore Throat General Chief Complaint: Upper Respiratory Infection Stated Complaint: sough/sore throat Time Seen by Provider: 02/03/23 17:50 Source: patient, RN notes reviewed and old records reviewed Mode of arrival: ambulatory Limitations: no limitations History of Present Illness HPI Narrative: 63-year-old female presents to the [facility] with complaints of cough and sore throat for 5-7 days. No treatment prior to arrival. Has felt fevers but did not take her temperature. Related Data Home Medications Medication Instructions Recorded Confirmed citalopram 20 mg tablet 20 mg PO DAILY 07/23/20 02/03/23 metformin 500 mg tablet 500 mg PO BID 07/23/20 02/03/23 metoprolol succinate 100 mg 100 mg PO DAILY 07/23/20 02/03/23 tablet,extended release 24 hr omeprazole 20 mg tablet,delayed 20 mg PO DAILY 07/23/20 02/03/23 release multivitamin with minerals-folic tablet PO 02/03/23 acid 0.4 mg tablet Allergies Allergy/AdvReac Type Severity Reaction Status Date / Time No Known Allergies Allergy Verified 02/03/23 17:53 Review of Systems Review of Systems: All systems reviewed & are unremarkable except as noted in HPI and below Constitutional: Constitutional: Reports no additional constitutional complaints Eyes: Eyes: Reports no additional eye complaints ENT: Reports as per HPI and Reports sore throat Cardiovascular: Cardiovascular: Reports no additional cardiovascular complaints, Denies chest pain and Denies dyspnea Respiratory: Respiratory: Reports as per HPI, Denies chest congestion, Reports cough and Denies dyspnea Gastrointestinal: Gastrointestinal: Reports no additional gastrointestinal complaints, Denies abdominal pain, Denies nausea and Denies vomiting Musculoskeletal: Musculoskeletal: Reports no additional musculoskeletal complaints Integumentary/Breasts: Skin/Breast: Reports system reviewed and no additional complaints, except as docu Neurologic: Reports system reviewed and no additional complaints, except as documented Psychiatric: Psychiatric: Reports no additional psychiatric complaints Allergic/Immunologic: Allergic/Immunologic: Reports no additional allergic/immunologic complaints PMFSH Past Medical History Medical History Ankle fracture Diabetes mellitus History of bruising easily Hypertension Vertigo Surgical History Surgical History H/O: (~1994) H/O: hysterectomy Hx of cholecystectomy (~1990) Family History Family History Unknown Diabetes mellitus Social History Social History Smoking status: Never smoker Comments At the time of my signature, I reviewed and agree with the nursing past medical, surgical, social, and family history. There is no relevant family history pertinent to the patient complaint. Exam Const: General: cooperative, healthy appearing, comfortable, no acute distress, well developed, alert and well nourished Nutritional Appearance: well nourished Orientation/consciousness: patient oriented x3 Limitations: no limitations HENMT: Head: normal to inspection Ears: hearing grossly normal bilaterally and external ears normal Face/Nose/Sinus: Normal external nose present, Normal nares present, Normal nasal mucous membranes and turbinates present and normal facial exam Face and sinus: normal facial exam Mouth: Yes Normal oral and palatal mucosa present, Yes lip normal and Yes moist mucous membranes Throat: posterior oropharynx normal, tonsils normal, uvula midline and postnasal drainage Eyes: General: appearance normal, both eyes and all related structures Alignment and Position: alignment normal Periorbital: periorbital findings normal Conjunctivae: conjunctivae normal Pupils: Equal, round and reactive pupils present EOM:
[2023-02-03 17:55] VITALS: BP 135/66; PULSE 84; RESP 14; TEMP 36.9; O2SAT 99
== END 2023-02-03 18:10 | disposition home or self-care (01) ==
PROVIDERS: Emergency Provider Nurse Practitioner; PCP Nurse Practitioner Family
DX: J06.9 Acute upper respiratory infection, unspecified (principal); R09.82 Postnasal drip; E11.9 Type 2 diabetes mellitus without complications; I10 Essential (primary) hypertension; Z79.4 Long term (current) use of insulin
CPT/HCPCS: 87081; 87880; 99213; G0463

== ENCOUNTER 2023-05-04 08:22 | Emergency (ER) | payer OTHER, SELFPAY ==
--- NOTE | ~2023-05-04 | XR_ITS ---
EXAMINATION: XR chest 2V DATE: 05/04/2023 09:03 INDICATION: Weakness and hypertension TECHNIQUE: PA and lateral views of the chest are obtained. COMPARISON: 01/12/2019 FINDINGS: The lungs are free of acute opacities. No pleural effusion or pneumothorax. The cardiomedia stinal silhouette is normal. There is moderate thoracic spondylosis. Surgical clips in the right upper quadrant are likely from prior cholecystectomy. IMPRESSION: 1. No acute cardiopulmonary abnormality. Reviewed, dictated and finalized at location A.
[2023-05-04 08:28] VITALS: BP 137/73; PULSE 94; RESP 18; TEMP 36.6; O2SAT 100
--- NOTE | 2023-05-04 08:35 | ECG_ITS ---
Measurements Intervals [place] Rate: 81 P: 42 MT: 153 QRS: 9 QRSD: 82 T: 29 QT: 368 QTc: 428 Interpretive Statements SINUS RHYTHM NONSPECIFIC ST ABNORMALITY BORDERLINE ECG COMPARED TO ECG 01/02/2023 22:29:59 SVT NO LONGER APPRECIATED Electronically Signed On 05-04-2023 17:03:41 CDT by Tom Thomason M.D.
[2023-05-04 08:44] LABS: Basophils Percent Auto 0.5 % (0.2-1.2); Eosinophils Absolute Auto 0.2 K/mm3 (0-0.3); Eosinophils Percent Auto 2.1 % (0-4.4); Hematocrit 36.6 % (37.0-47.0); Hemoglobin 11.7 g/dL (12.0-15.0); Immature Granulocyte Absolute 0.01 K/mm3 (0.00-0.031); Immature Granulocyte Percent A 0.1 % (0-0.5); Lymphocytes Absolute Auto 3.27 K/mm3 (0.9-3.2); Lymphocytes Percent Auto 43.4 % (18.3-44.2); Mean Corpuscular Hemoglobin 28.6 pg (26-34); Mean Corpuscular Volume 89.5 fl (80-100); Mean Platelet Volume 8.8 fl (7.4-10.4); Monocytes Absolute Auto 0.5 K/mm3 (0.1-0.6); Neutrophils Absolute Auto 3.5 K/mm3 (1.3-6.7); Neutrophils Percent Auto 46.9 % (45.5-73.1); Platelet Count Result 333 k/mm3 (150-375); Red Blood Count 4.09 M/mm3 (4.2-5.4); Red Cell Distribution Width 13.3 % (11.5-14.5); White Blood Count 7.5 K/mm3 (4.5-10.0)
[2023-05-04 09:08] LABS: Alanine Aminotransferase 21 U/L (6-35); Albumin Level 4.5 g/dL (3.5-5.1); Alkaline Phosphatase 87 U/L (38-126); Anion Gap 7 mmol/L (8-16); Aspartate Amino Transferase 26 U/L (14-36); Bilirubin,Total 0.5 mg/dL (0.2-1.3); Blood Urea Nitrogen 13 mg/dL (7-17); Carbon Dioxide 29 mmol/L (22-30); Chloride 103 mmol/L (98-107); Estimated Glomerular Filt Rate > 60; Glucose 127 mg/dL (65-110); Potassium 3.8 mmol/L (3.4-5.0); Sodium 139 mmol/L (137-145)
[2023-05-04] MEDS: SODIUM CHLORIDE 0.9% IV 1,000 ML 999 ML IV CONT (09:41)
[2023-05-04] MEDS: MECLIZINE HCL 25 MG TABLET PO (09:41)
[2023-05-04 09:52] LABS: Appearance Urine Clear (Clear); Bacteria Urine None Seen /hpf; Bilirubin Urine Negative (Negative); Blood Urine 2+ (Negative); Color Urine Yellow (Yellow); Glucose Urine UA Negative (Negative); Ketones Urine Negative (Negative); Leukocyte Esterase Ur Negative LEU/UL (Negative); Nitrate Urine Negative (Negative); Non Pathogenic Casts 0-2; Protein Urine Negative (Negative); Specific Grav Ur 1.016 (1.001-1.035); Squamous Epithelial Cell Urine None seen /hpf (Few); Urobilinogen Urine 0.2 mg/dL (<2.0); WBC Urine 0-5 /hpf; pH Urine 5.5 (5.0-9.0)
[2023-05-04 09:53] LABS: Add Urine Microscopic? YES
--- NOTE | 2023-05-04 11:27 | ED.GENADULT ---
HPI - General Adult General Chief complaint: Weakness Stated complaint: dizzy/cortes/shaking Time Seen by Provider: 05/04/23 08:38 History of Present Illness HPI narrative: Patient is a 63-year-old female who presents ER with dizziness. Ongoing since yesterday. Worse with laying backwards or turning her head. Better with sitting still. Associated with frontal headache occurred yesterday. She reports pressure in her ears as well as some ringing. Patient has had similar symptoms in the past. Denies any focal numbness or weakness to an arm or leg. Patient reports it makes her feel off balance when she is walking and she feels a warm sensation to her body. Son is interpreting for patient. Related Data Home Medications Medication Instructions Recorded Confirmed citalopram 20 mg tablet 20 mg PO DAILY 07/23/20 02/03/23 metformin 500 mg tablet 500 mg PO BID 07/23/20 02/03/23 metoprolol succinate 100 mg 100 mg PO DAILY 07/23/20 02/03/23 tablet,extended release 24 hr omeprazole 20 mg tablet,delayed 20 mg PO DAILY 07/23/20 02/03/23 release multivitamin with minerals-folic tablet PO 02/03/23 acid 0.4 mg tablet Allergies Allergy/AdvReac Type Severity Reaction Status Date / Time No Known Allergies Allergy Verified 02/03/23 17:53 Review of Systems Review of Systems: All systems reviewed & are unremarkable except as noted in HPI and below Constitutional: Constitutional: Denies chills and Denies fever(s) Eyes: Eyes: Denies change in vision and Denies photophobia ENT: Reports dizziness, Denies nasal congestion and Denies sore throat Respiratory: Respiratory: Denies cough and Denies dyspnea Gastrointestinal: Gastrointestinal: Denies abdominal pain, Denies nausea and Denies vomiting Neurologic: Reports dizziness, Reports headache(s), Denies focal weakness and Denies numbness PMFSH Past Medical History Medical History Ankle fracture Diabetes mellitus History of bruising easily Hypertension Vertigo Surgical History Surgical History H/O: (~1994) H/O: hysterectomy Hx of cholecystectomy (~1990) Family History Family History Unknown Diabetes mellitus Social History Social History Smoking status: Never smoker Exam Narrative: GENERAL: Well-appearing, well-nourished, and in no acute distress. HEAD: Normocephalic, atraumatic. EYES: PERRL and EOMI. ENT: Mucous membranes moist. TMs normal in appearance but there is an audible pop with ear manipulation. NECK: Supple. CHEST: Clear to auscultation. No respiratory distress. HEART: Regular rate and rhythm. Normal peripheral pulses. EXTREMITIES: Normal range of motion. No edema. SKIN: Warm, dry, no rash. NEURO: Alert and oriented x3. Ambulates with a steady gait. PSYCH: Normal mood and affect. Course Course Emergency Course: Symptoms resolved with meclizine and IV fluids. Discussed treatment plan and patient verbalized understanding. Patient was worried that she may be having some SVT due to palpitations that occur with this but EKG is unchanged and shows no arrhythmia. Vital Signs Vital signs: Vital Signs Temperature 97.9 F 05/04/23 08:28 Pulse Rate 94 05/04/23 08:28 Respiratory Rate 18 05/04/23 08:28 Blood Pressure 137/73 05/04/23 08:28 Pulse Oximetry 100 05/04/23 08:28 Oxygen Delivery Room Air 05/04/23 08:28 Temperature 97.9 F 05/04/23 08:28 Pulse Rate 94 05/04/23 08:28 Respiratory Rate 18 05/04/23 08:28 Blood Pressure 137/73 05/04/23 08:28 Pulse Oximetry 100 05/04/23 08:28 Oxygen Delivery Room Air 05/04/23 08:28 Medical Decision Making Vital Signs Vital Signs: Vital Signs Temperature 97.9 F 05/04/23 08:28 Pulse Rate 94 05/04/23 08:28 Respiratory
== END 2023-05-04 11:56 | disposition home or self-care (01) ==
PROVIDERS: Emergency Provider Emergency Medicine; PCP Nurse Practitioner Family
DX: R42 Dizziness and giddiness (principal); E11.9 Type 2 diabetes mellitus without complications; I10 Essential (primary) hypertension; Z90.710 Acquired absence of both cervix and uterus; Z90.49 Acquired absence of other specified parts of digestive tract; R94.31 Abnormal electrocardiogram [ECG] [EKG]; Z79.84 Long term (current) use of oral hypoglycemic drugs
CPT/HCPCS: 36415; 71046; 80053; 81001; 85025; 93005; 96360; 99283; A9270; J7030

== ENCOUNTER → 2023-10-30 13:33 | Outpatient (CLI) | payer OTHER, SELFPAY ==
--- NOTE | ~2023-10-30 | MM_ITS ---
EXAMINATION: MM screening [facility] BI w jamari HISTORY: Screening mammogram TECHNIQUE: Craniocaudal and mediolateral oblique 3-D tomosynthesis images were obtained and synthetic 2-D images were generated. CAD analysis was submitted and interpreted. COMPARISON: 01/30/2022, 11/20/2020, 11/24/2019, 11/01/2019 BREAST PARENCHYMAL COMPOSITION: There are scattered areas of fibroglandular density. FINDINGS: No suspicious mass, calcification, or architectural distortion are identified in either [place] ast to suggest malignancy. There has been no suspicious interval change. IMPRESSION: 1. No mammographic evidence of malignancy. 2. Recommend routine screening mammography in one year. BI-RADS Category 1: Negative Reviewed, dictated and finalized at location A. ATORY ANIMAL EXTERMINATOR
== END ==
PROVIDERS: PCP Obstetrics & Gynecology; Visit Provider Obstetrics & Gynecology
DX: Z12.31 Encounter for screening mammogram for malignant neoplasm of breast (principal)
CPT/HCPCS: 77063; 77067

== ENCOUNTER 2024-10-30 09:46 | Emergency (ER) | payer OTHER, SELFPAY ==
--- NOTE | ~2024-10-30 | CT_ITS ---
EXAMINATION: CT abdomen pelvis w con DATE: 10/30/2024 13:44 INDICATION: Abdominal pain. Nausea, vomiting, and diarrhea. TECHNIQUE: Computed tomography (CT) of the abdomen and pelvis was performed with 100 mL Omnipaque 350 intravenous contrast. Automated exposure control and iterative reconstruction technique were employe d. The dose-length product was 340.20 mGy-cm. COMPARISON: CT abdomen and pelvis 12/18/2017 FINDINGS: The visualized portions of lung bases demonstrate mild atelectasis. No pleural effusion. Th e heart size is normal. No pericardial effusion. The liver and spleen are normal. There are changes o f cholecystectomy. The pancreas and adrenal glands are normal. There are cysts in the kidneys measuri ng up to 11 mm on the right. There are no dilated loops of bowel. The appendix is normal. There are n o pathologically enlarged lymph nodes. There is no free intraperitoneal fluid. There is mild thoracic and lumbar spondylosis. IMPRESSION: 1. No etiology for the patient's symptoms. Reviewed, dictated and finalized at location A. CE TECHNOLOGY INSTRUCTOR
[2024-10-30 09:51] VITALS: BP 124/57; PULSE 84; RESP 16; TEMP 36.4; O2SAT 100
[2024-10-30 10:18] LABS: Basophils Percent Auto 0.3 % (0.2-1.2); Eosinophils Absolute Auto 0.2 K/mm3 (0-0.3); Eosinophils Percent Auto 1.3 % (0-4.4); Hematocrit 36.8 % (37.0-47.0); Hemoglobin 11.6 g/dL (12.0-15.0); Immature Granulocyte Absolute 0.04 K/mm3 (0.00-0.031); Immature Granulocyte Percent A 0.3 % (0-0.5); Lymphocytes Absolute Auto 1.28 K/mm3 (0.9-3.2); Mean Corpuscular HGB Conc 31.5 g/dl (32-36); Mean Corpuscular Hemoglobin 28.6 pg (26-34); Mean Corpuscular Volume 90.9 fl (80-100); Mean Platelet Volume 8.6 fl (7.4-10.4); Monocytes Absolute Auto 0.6 K/mm3 (0.1-0.6); Monocytes Percent Auto 5.5 % (2.6-8.5); Neutrophils Absolute Auto 9.5 K/mm3 (1.3-6.7); Neutrophils Percent Auto 81.6 % (45.5-73.1); Platelet Count Result 361 k/mm3 (150-375); Red Blood Count 4.05 M/mm3 (4.2-5.4); White Blood Count 11.6 K/mm3 (4.5-10.0)
[2024-10-30 10:28] LABS: Alanine Aminotransferase 31 U/L (6-35); Albumin Level 4.4 g/dL (3.5-5.1); Alkaline Phosphatase 107 U/L (38-126); Anion Gap 6 mmol/L (4-12); Aspartate Amino Transferase 33 U/L (14-36); Bilirubin,Total 0.6 mg/dL (0.2-1.3); Blood Urea Nitrogen 16 mg/dL (7-17); Calcium 9.1 mg/dL (8.4-10.2); Carbon Dioxide 27 mmol/L (22-30); Chloride 107 mmol/L (98-107); Estimated CRCL calculation 60 ml/min; Estimated Glomerular Filt Rate > 60; Glucose 174 mg/dL (65-110); Lipase 193 U/L (23-300); Potassium 4.3 mmol/L (3.4-5.0); Sodium 140 mmol/L (137-145)
[2024-10-30 10:32] LABS: Add Urine Microscopic? YES; Appearance Urine Clear (Clear); Bacteria Urine None Seen /hpf; Bilirubin Urine Negative (Negative); Blood Urine 1+ (Negative); Color Urine Yellow (Yellow); Glucose Urine UA Negative (Negative); Ketones Urine Negative (Negative); Leukocyte Esterase Ur Trace LEU/UL (Negative); Nitrate Urine Negative (Negative); Protein Urine Negative (Negative); Specific Grav Ur 1.018 (1.001-1.035); Squamous Epithelial Cell Urine None Seen /hpf (Few); Urobilinogen Urine 0.2 mg/dL (<2.0); WBC Urine 0-5 /hpf (0-3)
[2024-10-30 10:54] LABS: Influenza A QL RT-PCR Negative (Negative); Influenza B QL RT-PCR Negative (Negative); RSV RNA, RT-PCR Negative (Negative); SARS-CoV-2 RNA PCR Negative (Negative)
[2024-10-30 11:23] VITALS: BP 124/60; PULSE 78; RESP 16; TEMP 36.6; O2SAT 100
[2024-10-30 12:19] VITALS: BP 115/64; PULSE 88; RESP 16; TEMP 36.3; O2SAT 100
[2024-10-30] MEDS: ONDANSETRON INJ 4 MG/2 ML VIAL IV PUSH (13:02)
[2024-10-30] MEDS: FAMOTIDINE 20 MG/2 ML VIAL IV PUSH (13:02)
[2024-10-30] MEDS: LACTATED RINGERS 1,000 ML 999 ML IV CONT (13:02)
--- NOTE | 2024-10-30 13:03 | ED_ITS ---
HPI - Nausea/Vomiting/Diarrhea General Chief complaint: Nausea/Vomiting/Diarrhea Stated complaint: hot flashes/diarrhea/nausea Time Seen by Provider: 10/30/24 12:16 History of Present Illness HPI Narrative: 64-year-old female presenting to the emergency depart with nonspecific abdominal pain, nauseousness, vomiting and diarrhea. She states she feels like she may have got food poisoning while she ate at an airport in [place] on her way back from [place]. She was there for a . Denies any water exposures or swimming. Denies any fever but states she feels hot and cold flashes. No back pain, chest pain, shortness a breath. She describes abdominal pain since yesterday with several episodes of emesis and episodes of Liquid still without any bleeding. Denies any urinary complaints. Related Data Home Medications Medication Instructions Recorded Confirmed citalopram 20 mg tablet 20 mg PO DAILY 07/23/20 02/03/23 metformin 500 mg tablet 500 mg PO BID 07/23/20 02/03/23 metoprolol succinate 100 mg 100 mg PO DAILY 07/23/20 02/03/23 tablet,extended release 24 hr omeprazole 20 mg tablet,delayed 20 mg PO DAILY 07/23/20 02/03/23 release multivitamin with minerals-folic tablet PO 02/03/23 acid 0.4 mg tablet Allergies Allergy/AdvReac Type Severity Reaction Status Date / Time No Known Allergies Allergy Verified 02/03/23 17:53 Review of Systems Review of Systems: as reviewed above in HPI PMFSH Past Medical History Medical History Ankle fracture Diabetes mellitus History of bruising easily Hypertension Vertigo Surgical History Surgical History H/O: (~1994) H/O: hysterectomy Hx of cholecystectomy (~1990) Family History Family History Unknown Diabetes mellitus Social History Social History Smoking status: Never smoker Exam Narrative: GENERAL: [Well-appearing, well-nourished, and in no acute distress.] HEAD: [Normocephalic, atraumatic.] EYES: [PERRLA and EOMI.] ENT: Nares clear, no rhinorrhea or epistaxis. Mucous membranes moist. NECK: Supple. CHEST: [Clear to auscultation. No respiratory distress.] HEART: [Regular rate and rhythm]. No murmur heard. [Normal peripheral pulses.] ABDOMEN: soft nondistended, minimally tender palpation in the center near the umbilicus, no CVA tenderness, no signs of peritonitis EXTREMITIES: Normal range of motion. [No edema.] SKIN: Warm, dry, no rash. NEURO: [No focal deficits]. Alert and oriented [x3.] PSYCH: [Normal mood and affect.] Course Vital Signs Vital signs: Vital Signs Temperature 36.4 C 10/30/24 09:51 Pulse Rate 84 10/30/24 09:51 Respiratory Rate 16 10/30/24 09:51 Blood Pressure 124/57 L 10/30/24 09:51 Pulse Oximetry 100 10/30/24 09:51 Oxygen Delivery Room Air 10/30/24 09:51 Temperature 36.3 C L 10/30/24 12:19 Pulse Rate 83 10/30/24 13:06 Respiratory Rate 16 10/30/24 13:06 Blood Pressure 137/80 10/30/24 13:06 Pulse Oximetry 100 10/30/24 13:06 Oxygen Delivery Room Air 10/30/24 09:51 MDM - Nausea/Vomiting/Diarrhea MDM Narrative Medical decision making narrative: 64-year-old female presenting for vague abdominal pain, nauseousness, vomiting and diarrhea. She just traveled back from [place] for visiting for and states that she ate an airport in [place] and that is when her symptoms started. Denies any water exposure or swimming in the [place] any other family members with similar symptoms. Denies any fevers but states that she feels hot and cold flashes. She has a soft nondistended but minimally tender abdomen near the umbilicus, no signs of rebound, guarding or peritonitis. Vital signs are reassuring without any blood pressure concerns, tachycardia, hypoxia, fever. Laboratory studies were obtained she does have a mild leukocytosis 11.6. Differential diagnosis is broad but does include gastroenteritis, bacterial gastritis, food poisoning, less likely intra-abdominal process such as diverticulitis, enterocolitis or appendicitis. additional laboratory studies including CBC, CMP, lipase and a urinalysis ordered in addition to a CT scan with IV contrast. She is given a fluid bolus, Zofran, morphine and Pepcid for symptom control. Workup revealed a very minor leukocytosis 11.6, hemoglobin stable 11.6 which is at her baseline. Normal platelet level. Urinalysis without any signs of infection. Normal electrolytes, normal renal and hepatic function panel. COVID fluid RSV swabs were negative. CT scan was independently reviewed also interpreted by Radiology without any acute intra-abdominal or pelvic process. Patient was re-evaluated had symptomatic improvement. At this time given her reassuring workup and stable vitals I believe she can be safely discharged home at this time with return precautions and expectant management as well as pre scription medications for continued symptom relief including Zofran, loperamide, Bentyl. Patient expressed understanding these instructions and safe for discharge at this time. Medical Records Attestation: I reviewed the patient's medical records. Lab Data Attestation: I reviewed the patient's lab results. 10/30/24 10:03 10/30/24 10:03 Labs: Lab Results 10/30/24 10/30/24 Range/Units 10:03 10:09 WBC 11.6 H (4.5-10.0) K/mm3 RBC 4.05 L (4.2-5.4) M/mm3 Hgb 11.6 L (12.0-15.0) g/dL Hct 36.8 L (37.0-47.0) % MCV 90.9 (80-100) fl MCH 28.6 (26-34) pg MCHC 31.5 L (32-36) g/dl RDW 14.0 (11.5-14.5) % Plt Count 361 (150-375) k/mm3 MPV 8.6 (7.4-10.4) fl Immature Gran % (Auto) 0.3 (0-0.5) % Neut % (Auto) 81.6 H (45.5-73.1) % Lymph % (Auto) 11.0 L (18.3-44.2) % [place] % (Auto) 5.5 (2.6-8.5) % Eos % (Auto) 1.3 (0-4.4) % Baso % (Auto) 0.3 (0.2-1.2) % Lymph # (Auto) 1.28 (0.9-3.2) K/mm3 [place] # (Auto) 0.6 (0.1-0.6) K/mm3 Eos # (Auto) 0.2 (0-0.3) K/mm3 Baso # (Auto) 0.0 (0.0-0.1) K/mm3 Abs Immat Gran (auto) 0.04 H (0.00-0.031) K/mm3 Absolute Neuts (auto) 9.5 H (1.3-6.7) K/mm3 Absolute Nucleated RBC 0.000 (0.0-0.012) K/mm3 Nucleated RBC % 0.0 (0.0-0.2) % Sodium 140 (137-145) mmol/L Potassium 4.3 (3.4-5.0) mmol/L Chloride 107 (98-107) mmol/L Carbon Dioxide 27 (22-30) mmol/L Anion Gap 6 (4-12) mmol/L BUN 16 (7-17) mg/dL Creatinine 0.70 (0.7-1.0) mg/dL Estim Creat Clear Calc 60 ml/min Estimated GFR > 60 (59 - ) Glucose 174 H (65-110) mg/dL Calcium 9.1 (8.4-10.2) mg/dL Total Bilirubin 0.6 (0.2-1.3) mg/dL AST 33 (14-36) U/L ALT 31 (6-35) U/L Alkaline Phosphatase 107 (38-126) U/L Total Protein 8.0 (6.3-8.2) g/dL Albumin 4.4 (3.5-5.1) g/dL Lipase 193 (23-300) U/L Urine Color Yellow (Yellow) Urine Appearance Clear (Clear) Urine pH 5.0 (5.0-9.0) Ur Specific Roberta 1.018 (1.001-1.035) Urine Protein Negative (Negative) mg/dL Urine Glucose (UA) Negative (Negative) mg/dL Urine Ketones Negative (Negative) mg/dL Ur Blood (Man) 1+ H (Negative) Urine Nitrate Negative (Negative) Urine Bilirubin Negative (Negative) Urine Urobilinogen 0.2 (<2.0) mg/dL Leukocyte Esterase Rfl Trace H (Negative) MAYCOL/UL Urine RBC 3-5 H (0-2) /hpf Urine WBC 0-5 (0-3) /hpf Ur Squamous Epith Cells None seen (Few) /hpf Urine Bacteria None seen /hpf Urine Casts 3-5 Influenza A (RT-PCR) Negative (Negative) Influenza B (RT-PCR) Negative (Negative) RSV (RT-PCR) Negative (Negative) SARS-CoV-2 RNA (RT-PCR) Negative (Negative) Imaging Data Attestation: I personally reviewed and interpreted this imaging study as follows: My impression: Impressions Abdomen/Pelvis CT 10/30/24 13:47 IMPRESSION: 1. No etiology for the patient's symptoms. Discharge Plan Discharge Clinical Impression: Food poisoning, Gastroenteritis Patient Disposition: Home, Self-Care Condition: Stable Instructions: Antibiotic Form, Gastroenteritis (ED), Acute Nausea and Vomiting (ED), Acute Diarrhea (ED), Food Poisoning (ED) Additional Instructions: We will send you home with some medications for symptom relief of your nausea, vomiting, diarrhea. Return with any new or worsening concerns at any time such as persistent pain, development of an intractable fever despite Tylenol, persistent nausea or difficulty tolerating p.o. intake. Follow-up with your regular PCP outpatient Prescriptions: New loperamide [Anti-Diarrheal (loperamide)] 2 mg capsule 2 mg PO Q6H PRN (Reason: loose stool) Qty: 14 0RF dicyclomine 20 mg tablet 20 mg PO TID PRN (Reason: abdominal pain) Qty: 14 0RF ondansetron 4 mg tablet,disintegrating 4 mg PO Q8H PRN (Reason: nausea and vomiting) Qty: 10 0RF No Action multivit with min-folic acid [Adult One Daily Multivitamin] 0.4 mg Tablet PO fluticasone propionate [Flonase Allergy Relief] 50 mcg/actuation spray,suspension 2 spray intranasal DAILY Qty: 16 0RF Rx Instructions: administer into each nostril metformin 500 mg Tablet 500 mg PO BID omeprazole 20 mg Tablet,Delayed Release (Dr/Ec) 20 mg PO DAILY metoprolol succinate 100 mg tablet extended release 24 hr 100 mg PO DAILY citalopram 20 mg tablet 20 mg PO DAILY meclizine 12.5 mg tablet 12.5 mg PO TID PRN (Reason: dizziness) Qty: 14 0RF Follow-up/Referrals: Low Gracia MD [Primary Care Provider] - Time of Disposition: 15:35
[2024-10-30 13:06] VITALS: BP 137/80; PULSE 83; RESP 16; O2SAT 100
[2024-10-30 14:00] VITALS: BP 124/68; PULSE 76; RESP 16; TEMP 36.6; O2SAT 100
[2024-10-30 15:00] VITALS: BP 120/68; PULSE 76; RESP 16; TEMP 36.5
== END 2024-10-30 15:48 | disposition home or self-care (01) ==
PROVIDERS: Emergency Medicine; Emergency Provider Student in an Organized Health Care Education/Training Program; PCP Obstetrics & Gynecology
DX: K52.9 Noninfective gastroenteritis and colitis, unspecified (principal); A05.9 Bacterial foodborne intoxication, unspecified; Z20.822 Contact with and (suspected) exposure to COVID-19; E11.9 Type 2 diabetes mellitus without complications; Z79.84 Long term (current) use of oral hypoglycemic drugs; I10 Essential (primary) hypertension
CPT/HCPCS: 36415; 74177; 80053; 81001; 83690; 85025; 87637; 96361; 96374; 96375; 99284; J2405; J7120; Q9967

== ENCOUNTER 2024-11-04 16:03 | Outpatient (CLI) | payer OTHER, SELFPAY ==
--- NOTE | ~2024-11-04 | MM_ITS ---
EXAMINATION: MM screening hanna BI w jamari HISTORY: Screening TECHNIQUE: Craniocaudal and mediolateral oblique 3-D tomosynthesis images were obtained and synthetic 2-D images were generated. CAD analysis was submitted and interpreted. COMPARISON: Comparison to multiple prior studies sequentially, with oldest reviewed study dated 02/09. BREAST PARENCHYMAL COMPOSITION: Not dense: There are scattered areas of fibroglandular density. FINDINGS: There is no evidence of suspicious mass, calcification, or architectural distortion to sugg est malignancy in either breast. There has been no suspicious interval change. IMPRESSION: 1. No mammographic evidence of malignancy. 2. Recommend routine screening mammography in one year. BI-RADS Category 1: Negative Reviewed, dictated and finalized at location B. ETING PLANNER
== END 2024-11-04 16:04 | disposition home or self-care (01) ==
PROVIDERS: PCP Obstetrics & Gynecology; Visit Provider Obstetrics & Gynecology
DX: Z12.31 Encounter for screening mammogram for malignant neoplasm of breast (principal)
CPT/HCPCS: 77063; 77067

== ENCOUNTER 2025-11-17 10:37 | Outpatient (CLI) | payer OTHER, SELFPAY ==
--- NOTE | ~2025-11-17 | XR_ITS ---
XR knee RT min 4V 11/17/2025 11:23 Indication: Right knee pain. Procedure: 5 views right knee Comparison: 11/19/2022 Findings: Mild tricompartment osteoarthritis. No fracture, subluxation or dislocation. No significant joint effusion. No foreign bodies. Impression: 1: Mild tricompartment osteoarthritis. Reviewed, dictated and finalized at location O. HOLDER Impression: 1: Mild tricompartment osteoarthritis.
--- OUTSIDE RECORDS SUMMARY | 2025-11-17 10:40 | XMS_ITS | Clinical Summary ---
Author Organization [facility] Address [address] [place] [address] Care Team Providers Care Family Practitioner Name Role Phone Unavailable Primary Care Provider Unavailabl e Source Comments [facility],non-owned Affiliates and Associated Physician Practices is amultiple site organization consisting of ambulatory clinics and hospital sitesin [place], [place], [place] and [place]. This disclosure is being madepursuant to the Care Everywhere program and may not contain all information available regarding this patient. Last updated 18.[facility] Allergies No known active allergies Medications * Be aware that medications may not be up to date on this document. Alwaysverify current medications with the patient. metFORMIN (GLUCOPHAGE) 500 MG tabletIndicatio ns:Type 2 Diabetes Mellitus Take 500 mg by mouth once daily. Indications: Type 2 Diabetes Active metoprolol succinate XL 24hr (TOPROL XL) 50 MG tablet Take 1 Tab by mouth once daily. 30 Tab 5 11/30/2013 Active support hose knee high closed toe (TEDS) support hose Apply 1 Each to affected area as directed. 2 Each 2 11/30/2013 Active Social History Tobacco Use Types Packs/Day Years Used Date Smoking Tobacco: Never Alcohol Use Standard Drinks/Week Comments Not Asked 0 (1 standard drink = 0.6 oz pur e alcohol) Comments Unknown Sex and Gender Information Value Date Recorded Sex Assigned at Not on file Legal Sex Female 9:57 AM LAMINATING MACHINE OPERATOR HELPER Gender Identity Not on file Sexual Orientation Not on file Last Filed Vital Signs Vital Sign Reading Time Taken Comments Blood Pressure 109/50 11/30/2013 12:35 PM LAMINATING MACHINE OPERATOR HELPER Pulse 105 11/30/2013 12:36 PM LAMINATING MACHINE OPERATOR HELPER Temperature 36.9 C (98.5 F) 11/30/2013 10:46 AM LAMINATING MACHINE OPERATOR HELPER Respiratory Rate 24 11/30/2013 12:36 PM LAMINATING MACHINE OPERATOR HELPER Oxygen Saturation 100% 11/30/2013 12:36 PM LAMINATING MACHINE OPERATOR HELPER Inhaled Oxygen Concentration - - Weight 65.8 kg (145 lb) 11/30/2013 10:34 AM LAMINATING MACHINE OPERATOR HELPER Height 152.4 cm (5') 11/30/2013 10:34 AM LAMINATING MACHINE OPERATOR HELPER Body Mass Index 28.32 11/30/2013 10:34 AM LAMINATING MACHINE OPERATOR HELPER Plan of Treatment Health Maintenance Due Date Last Done Comments COLOGUARD (AGES 45-75) - COL ON CA SCREENING 1961 COLON MONITORING 1961 COLONOSCOPY - COLON CA SCREENING 1961 CT COLONOGRAPHY - COLON CA SCREENING 1961 Colorectal Cancer Screening 1961 FIT - COLON CA SCREENING 1961 FLEX SIG - COLON CA SCREENING 1961 LIPID TESTING 1961 MAMMOGRAM 1961 HIV SCREENING 01/27/1976 HEPATITIS C SCREENING 01/22/1979 DTAP/TDAP/TD VACCINES (1 - Tdap) 01/27/1980 PNEUMOCOCCAL VACCINE 50+ (1 of 1 - PCV) 2011 ZOSTER VACCINE (1 of 2) 2011 DEPRESSION SCREENING 11/23/2024 COVID-19 VACCINE ( - 2024-2 6 season) 2025 INFLUENZA VACCINE (#1) 2025 Respiratory Syncytial Virus (RSV) Vaccine Pt: or over 60 yrs (1 - 1-dose 75+ series) 01/27/2036 HEPATITIS B VACCINE Aged Out No longe r eligible based on patient's age to complete this topic HIB VACCINE Aged Out No longer eligi ble based on patient's age to complete this topic HPV VACCINE Aged Out No longer eligi ble based on patient's age to complete this topic MENINGOCOCCAL (Group B) VACC INE SHARED DECISION-MAKING Aged Out No longer eligibl e based on patient's age to complete this topic MENINGOCOCCAL GROUPS A/C/Y/W VACCINE Aged Out No longer eligible b ased on patient's age to complete this topic Insurance [facility]
--- OUTSIDE RECORDS SUMMARY | 2025-11-17 10:40 | XMS_ITS | Clinical Summary ---
Author Organization [facility] Address [address] [place] [address] Phone Care Team Providers Care Tumbler Operator Name Role Phone Unavailable Primary Care Provider Unavailabl e Allergies No known active allergies Medications OneTouch Ultra Test Strip 09/22/2025 Active busPIRone (BUSPAR) 5 mg tablet 05/19/2025 Active metFORMIN (GLUCOPHAGE) 1,000 mg tablet 08/08/2025 Active metoprolol succinate (TOPROL XL) 50 mg Extended Release 24 hour tablet 08/20/2025 Active Active Problems No known active problems Encounters Date Type Department Care Team Description 11/14/2025 External Device Data STL ABSTRACTION Provider, Abstract 11/14/2025 External Device Data STL ABSTRACTION Provider, Abstract 10/10/2025 External Device Data STL ABSTRACTION Provider, Abstract 10/06/2025 1:30 PM ROTARY SWAGING MACHINE OPERATOR History & Physical [facility] - [facility] - Ophthalmology [address] [place] [id number] Corwin Dsouza MD Combined forms of age-related cataract, bilateral (Primary Dx); Type 2 diabetes mellitus without retinopathy ([facility]/HCC); Open angle with borderline findings and low glaucoma risk in both eyes 09/20/2025 External Device Data STL ABSTRACTION Provider, Abstract 09/20/2025 External Device Data STL ABSTRACTION Provider, Abstract 09/13/2025 External Device Data STL ABSTRACTION Provider, Abstract 09/12/2025 External Device Data STL ABSTRACTION Provider, Abstract from Last 3 Months Family History Medical History Relation Name Comments Diabetes Father Diabetes Mother Rheumatoid Arthritis Mother Relation Name Status Comments Father Mother Social History Tobacco Use Types Packs/Day Years Used Date Smoking Tobacco: Never Smokeless Tobacco: Never Tobacco Cessation:Counseling Given: Not Answered Comments Unknown Sex and Gender Information Value Date Recorded Sex Assigned at Not on file Legal Sex Female 10:36 AM CDT Gender Identity Not on file Sexual Orientation Not on file Plan of Treatment Upcoming Encounters Date Type Department Care Team (Late st Contact Info) Description 01/17/2026 10:20 AM ROTARY SWAGING MACHINE OPERATOR Hospital Encounter [facility] [place] [address] [place] [address] Corwin Dsouza MD [address] [place] [address] Combined forms of age-related cataract of right eye 01/17/2026 10:20 AM ROTARY SWAGING MACHINE OPERATOR - 01/17/2026 10:55 AM ROTARY SWAGING MACHINE OPERATOR Surgery [facility] [place] [address] [place] [address] Corwin Dsouza MD [address] [place] [address] CATARACT EXTRACTION IOL INSERTION MANUAL CNA0T0 +23.50; MA60AC +22.50; MTA4U0 +20.00 01/18/2026 8:30 AM ROTARY SWAGING MACHINE OPERATOR Office Visit [facility] - [facility] [address] - Ophthalmology [address] [place] [address] Corwin Dsouza MD [address] [place] [address] 01/23/2026 9:45 AM ROTARY SWAGING MACHINE OPERATOR Office Visit [facility] - [address] - Ophthalmology [address] [place] [address] Chelsi Hatch, PAL [address] [place] [address] 01/31/2026 7:25 AM CDT Hospital Encounter [facility] [place] [facility] [place] [address] [place] [address] Corwin Dsouza MD [address] [place] [address] Combined forms of age-related cataract of left eye 01/31/2026 7:25 AM CDT - 01/31/2026 8:00 AM CDT Surgery [facility] [place] [address] [place] [address] Corwin Dsouza MD [address] [place] [address] CATARACT EXTRACTION IOL INSERTION MANUAL CNA0T0 +23.00; MA60AC +22.00; MTA4U0 +19.50 02/01/2026 8:45 AM CDT Office Visit [facility] - [facility] [address] - Ophthalmology [address] [address] [place] [address] Corwin Dsouza MD [address] [place] [address] 03/02/2026 1:15 PM CDT Office Visit [facility] - [facility] [address] - Ophthalmology [address] [place] [address] Chelsi Hatch, OD [address] [place] [address] Scheduled Procedures Name Priority Associated Diagnoses Date/Ti me CATARACT EXTRACTION IOL INSERTION MANUAL Combined forms of age-related cataract of right eye 01/17/2026 10:20 AM ROTARY SWAGING MACHINE OPERATOR CATARACT EXTRACTION IOL INSERTION MANUAL Combined forms of age-related cataract of left eye 01/31/2026 7:25 AM CDT Health Maintenance Due Date Last Done Comments DIABETES ANNUAL FOOT EXAM 1979 DIABETES HBA1C Q 6 MONTHS 1979 DIABETES MICROALBUMIN ANNUAL SCREEN 1979 LDL CHOLESTEROL ANNUAL 1979 DTAP/TDAP/TD VACCINES (1 - Tdap) 01/27/1980 HPV/Cotest (21-29) 1982 CERVICAL CANCER SCREENING 1991 HPV/Cotest (30-65) 1991 PAP SMEAR 1991 BREAST CANCER SCREENING 2001 COLORECTAL SCREENING 2006 Colorectal Cancer Screening 2006 FIT-DNA Q 3 years 2006 FIT/FOBT Q 1 year 2006 Flex Sig/CT Colonography Q 5 years 2006 ZOSTER VACCINE (1 of 2) 2011 INFLUENZA VACCINE (#1) 2025 DIABETES ANNUAL RETINAL EXAM 06/30/202606/2025, 06/30/2025, 06/30/2025, Additional history exists RSV VACCINE (60+ or ) (1 - 1-dose 75+ series) 01/27/2036 Goals Goal Patient Goal Type Associated Problems Recent Progress Patient-Stated? Author Autogenerat ed Goal Care Plan Autogenerated Problem No Margot Abebe COT Autogenerat ed Goal Care Plan Autogenerated Problem No Margot Abebe COT Procedures Procedure Name Priority Date/Time Associated Diagnosis Comments OCT, OPTIC NERVE - OU - BOTH EYES Routine 10/06/2025 5:44 PM ROTARY SWAGING MACHINE OPERATOR Open angle with borderline findings and low glaucoma risk in both eyes IOL BIOMETRY - OU - BOTH EYES Routine 10/06/2025 5:43 PM ROTARY SWAGING MACHINE OPERATOR Combined forms of age-related cataract, bilateral from Last 3 Months Results * OCT, OPTIC NERVE - OU - BOTH EYES (10/06/2025 5:44 PM ROTARY SWAGING MACHINE OPERATOR) Narrative [facility] - 10/06/2025 5:44 PM ROTARY SWAGING MACHINE OPERATOR Vane Optic Nerve OCT: Both Eyes Reliability: Reliable Average RNFL Thickness OD: 93 microns Average RNFL Thickness OS: 90 microns GCC OD: normal GCC OS: normal Indication OU: Open angle glaucoma suspect Interpretation OU: RNFL WNL Comparison OU: Baseline exam Impact on Treatment OU: as described in plan Corwin Dsouza MD OPHTH TOMOGRAPHY Fi nal Result [facility] * IOL BIOMETRY - OU - BOTH EYES (10/06/2025 5:43 PM ROTARY SWAGING MACHINE OPERATOR) Narrative [facility] OPHTHALMOLOGY ORDERS - 10/06/2025 5:43 PM ROTARY SWAGING MACHINE OPERATOR Table formatting from the original result was not included. Right Eye Lens style: CNA0T0. Lens power: 23.5. Target refraction: 0.00. Formula used: Jami Chaparro). Left Eye Lens style: CNA0T0. Lens power: 23.0. Target refraction: 0.00. Formula used: Jami Chaparro). Notes Axial length: Right eye: 22.15 Left eye: 22.23 Cataract Planning - Right Eye Planning/Goals Distance/Near Distance Target refraction [place] Refraction Sphere Cylinder [place] Add Dist [place] Date Pre-op +2.00 +0.50 006 +1.50 10/06/2025 Lens Selection Type Model Power Preferred Standard Monofocal CNA0T0 23.5 Secondary Standard Monofocal MA60AC 22.5 Tertiary Anterior Chamber MTA4U0 20 Biometry IOL Biometry - OU - Both Eyes ([id number]) 10/06/2025 Cataract Planning - Left Eye Planning/Goals Distance/Near Distance Target refraction [place] Refraction Sphere Cylinder [place] Add Dist VA Date Pre-op +2.00 Sphere +1.50 10/06/2025 Lens Selection Type Model Power Preferred Standard Monofocal CNA0T0 23.0 Secondary Standard Monofocal MA60AC 22 Tertiary Anterior Chamber MTA4U0 19.5 Biometry IOL Biometry - OU - Both Eyes (41169) 10/06/2025 Corwin Dsouza MD OPHTH ULTRASOUND Fi nal Result [facility] [place] from Last 3 Months Additional Health Concerns Active Problems Noted Date Diagnosed Date Autogenerated Problem 10/10/2025 Autogenerated Problem 10/10/2025 Insurance
== END 2025-11-17 10:38 | disposition home or self-care (01) ==
PROVIDERS: PCP Obstetrics & Gynecology
DX: M17.11 Unilateral primary osteoarthritis, right knee (principal)
CPT/HCPCS: 73564

== ENCOUNTER 2025-11-20 15:55 | Emergency (ER) | payer OTHER, SELFPAY ==
--- NOTE | ~2025-11-20 | US_ITS ---
US venous doppler LE RT INDICATION: Right lower extremity pain and swelling. COMPARISON: None. TECHNIQUE: The deep veins of the right lower extremity were evaluated with Duplex Doppler, color Doppler, and high-resolution B-mode sonography. Evaluated veins include the common femoral, femoral, and popliteal veins. The calf veins were also evaluated. Compression and augmentation maneuvers were performed. FINDINGS: The deep veins of the right lower extremity were compressible and demonstrated spontaneous phasic waveforms with an appropriate response to augmentation maneuvers. The visualized calf veins were patent. IMPRESSION: There was no sonographic evidence of deep vein thrombosis in the right lower extremity. Reviewed, dictated and finalized at location S. GEOVER OPERATOR IMPRESSION: There was no sonographic evidence of deep vein thrombosis in the right lower ex tremity.
--- NOTE | ~2025-11-20 | XR_ITS ---
XR knee RT 3V 11/20/2025 16:28 INDICATION: Right knee pain PROCEDURE: 4 views right knee COMPARISON: 11/17/2025 FINDINGS: Fracture, dislocation or subluxation is not identified. No significant joint effusion. Mild patellofemoral compartment osteoarthritis. The soft tissues appear within normal limits. No foreign bodies are identified. IMPRESSION: 1: NO ACUTE BONE OR JOINT ABNORMALITY IDENTIFIED. Reviewed, dictated and finalized at location O. TRIMMER
[2025-11-20 16:05] VITALS: BP 139/57; PULSE 91; RESP 16; TEMP 36.5; O2SAT 100
--- NOTE | 2025-11-20 18:21 | ED.LOWEXIN ---
HPI - Extremity Injury (Lower) General Chief Complaint: Extremity Injury, Lower <AZEB Virk Last Filed: 11/20/25 18:31> Stated Complaint: R ankle injury <AZEB Virk Last Filed: 11/20/25 18:31> Time Seen by Provider: 11/20/25 18:20 <AZEB Virk Last Filed: 11/20/25 18:31> Focused HPI: Patient is a 65-year-old female who presents the ED with report of right lower extremity pain. Patient reports she has had pain throughout her right knee and calf for the past 2 weeks. Today she felt increased pain with ambulation and states she is hardly able to bear weight on her right leg which prompted her presentation. Denies numbness. Denies fall or injury. Denies previous history of blood clots. GENERAL: Well-appearing, well-nourished, and in no acute distress. HEAD: Normocephalic, atraumatic. CHEST: Clear to auscultation. ?No respiratory distress. HEART: Regular rate and rhythm.? MSK: Mild diffuse tenderness throughout R anterior knee, no significant swelling. Mild tenderness to R posterior calf. Trace swelling throughout RLE NEURO: ?Alert and oriented x3. Patient screened in triage and initial orders placed.? ?Additional care and disposition to be based upon?diagnostic testing and treatment. <Mary Howard PA-C - Last Filed: 11/20/25 18:31> Source: patient <AZEB Virk Last Filed: 11/20/25 18:31> Mode of arrival: ambulatory <AZEB Virk Last Filed: 11/20/25 18:31> Limitations: no limitations <AZEB Virk Last Filed: 11/20/25 18:31> Related Data Home Medications: Home Medications ?Medication ?Instructions ?Recorded ?Confirmed ?Last Taken ?Type citalopram 20 mg tablet 20 mg PO DAILY 07/23/20 02/03/23 07/22/20 History metformin 500 mg tablet 500 mg PO BID 07/23/20 02/03/23 07/22/20 History metoprolol succinate 100 mg 100 mg PO DAILY 07/23/20 02/03/23 07/22/20 History tablet,extended release 24 hr omeprazole 20 mg tablet,delayed 20 mg PO DAILY 07/23/20 02/03/23 07/22/20 History release multivitamin with minerals-folic tablet PO 02/03/23 Unknown History acid 0.4 mg tablet <AZEB Virk Last Filed: 11/20/25 18:31> Allergies/Adverse Reactions: Allergies Allergy/AdvReac Type Severity Reaction Status Date / Time No Known Allergies Allergy Verified 11/20/25 15:56 <AZEB Virk Last Filed: 11/20/25 18:31> Review of Systems Review of Systems: All systems reviewed & are unremarkable except as noted in HPI and below <AZEB Santiago Last Filed: 11/20/25 20:33> [facility] [place] Past Medical History Medical History: Medical History Ankle fracture Diabetes mellitus History of bruising easily Hypertension Vertigo <AZEB Virk Last Filed: 11/20/25 18:31> Surgical History Surgical History: Surgical History H/O: (~1994) H/O: hysterectomy Hx of cholecystectomy (~1990) <AZEB Virk Last Filed: 11/20/25 18:31> Family History Family History: Family History Unknown Diabetes mellitus <AZEB Virk Last Filed: 11/20/25 18:31> Social History Social History: Social History Smoking status: Never smoker <AZEB Virk Last Filed: 11/20/25 18:31> Exam Narrative: GENERAL: Well-appearing, well-nourished, and in no acute distress. HEAD: Normocephalic, atraumatic. EYES: EOMI. EXTREMITIES: Normal range of motion. No edema, erythema or obvious deformity. Normal DP pulse SKIN: Warm, dry, no rash. NEURO: No focal deficits. Alert and oriented x3. PSYCH: Normal mood and affect <AZEB Santiago Last Filed: 11/20/25 20:33> Course Vital Signs Vital signs: Vital Signs Temperature 97.7 F 11/20/25 16:05 Pulse Rate 91 11/20/25 16:05 Respiratory Rate 16 11/20/25 16:05 Blood Pressure 139/57 L 11/20/25 16:05 Pulse Oximetry 100 11/20/25 16:05 Oxygen Delivery Room Air 11/20/25 16:05 Temperature 98.3 F 11/20/25 19:57 Pulse Rate 81 11/20/25 19:57 Respiratory Rate 16 11/20/25 19:57 Blood Pressure 137/92 H 11/20/25 19:57 Pulse Oximetry 100 11/20/25 19:57 Oxygen Delivery Room Air 11/20/25 16:05 <Mary Howard PA-C - Last Filed: 11/20/25 18:31> Vital Signs Temperature 97.7 F 11/20/25 16:05 Pulse Rate 91 11/20/25 16:05 Respiratory Rate 16 11/20/25 16:05 Blood Pressure 139/57 L 11/20/25 16:05 Pulse Oximetry 100 11/20/25 16:05 Oxygen Delivery Room Air 11/20/25 16:05 Temperature 98.3 F 11/20/25 19:57 Pulse Rate 81 11/20/25 19:57 Respiratory Rate 16 11/20/25 19:57 Blood Pressure 137/92 H 11/20/25 19:57 Pulse Oximetry 100 11/20/25 19:57 Oxygen Delivery Room Air 11/20/25 16:05 <AZEB Santiago Last Filed: 11/20/25 20:33> Procedures Orthopedic Splinting/Casting Injury #1: Splinting/Casting Date: 11/20/25 <AZEB Santiago Last Filed: 11/20/25 20:33> Splinting/Casting Time: 20:32 <Marjan Abarca PA-C - Last Filed: 11/20/25 20:33> Side: right <AZEB Santiago Last Filed: 11/20/25 20:33> Lower Extremity Injury Location: knee <AZEB Santiago Last Filed: 11/20/25 20:33> Lower Extremity Immobilizer: Ryley wrap <Marjan Abarca PA-C - Last Filed: 11/20/25 20:33> Pre-Procedure Neuro Vascular Exam: normal <AZEB Santiago Last Filed: 11/20/25 20:33> Post-Procedure Neuro Vascular Exam: normal <AZEB Santiago Last Filed: 11/20/25 20:33> Other Orthopedic Equipment: crutches <AZEB Santiago Last Filed: 11/20/25 20:33> [facility] MDM Narrative Medical decision making narrative: MSE by NALDO in triage <AZEB Virk Last Filed: 11/20/25 18:31> MSE by NALDO in triage Patient presents to the emergency department for right knee pain. Reports walking and felt a pop. Unable to bear weight without pain. She is neurovascularly intact. Right knee x-ray without acute osseous abnormalities. Also endorsing right calf pain. Ultrasound venous Doppler without evidence of DVT. Placed in Ryley wrap. Will be given follow-up with Orthopedics <AZEB Santiago Last Filed: 11/20/25 20:33> Differential Diagnosis Differential Diagnosis: Knee sprain, meniscal injury, osteoarthritis, DVT <AZEB Santiago Last Filed: 11/20/25 20:33> Imaging Data Radiologist's impression: ITS Impressions Knee X-Ray 11/20/25 16:29 IMPRESSION: 1: NO ACUTE BONE OR JOINT ABNORMALITY IDENTIFIED. Venous Doppler Study 11/20/25 19:12 IMPRESSION: There was no sonographic evidence of deep vein thrombosis in the right lower extremity. <Mary Howard PA-C - Last Filed: 11/20/25 18:31> ITS Impressions Knee X-Ray 11/20/25 16:29 IMPRESSION: 1: NO ACUTE BONE OR JOINT ABNORMALITY IDENTIFIED. Venous Doppler Study 11/20/25 19:12 IMPRESSION: There was no sonographic evidence of deep vein thrombosis in the right lower extremity. <AZEB Santiago Last Filed: 11/20/25 20:33> Critical Care Time Critical Care Time Critical Care Time: No <Marjan Abarca PA-C - Last Filed: 11/20/25 20:33> Discharge Plan Discharge Clinical Impression: Acute internal derangement of knee <AZEB Virk Last Filed: 11/20/25 18:31> Patient Disposition: Home <AZEB Virk Last Filed: 11/20/25 18:31> Condition: Stable <AZEB Virk Last Filed: 11/20/25 18:31> Instructions: Knee Sprain (ED) <AZEB Virk Last Filed: 11/20/25 18:31> Additional Instructions: Return to the ER if you experience fever, redness and swelling of your extremity, numbness or any other symptoms that are concerning to you Wear RYLEY wrap and use crutches. No weight on the affected leg until able to bear weight without pain. Ice and elevate extremity. Pain medication as needed and directed. Follow up with orthopedics for further care. <AZEB Virk Last Filed: 11/20/25 18:31> Patient Language: Nepali <AZEB Virk Last Filed: 11/20/25 18:31> Prescriptions: No Action multivit with min-folic acid [Adult One Daily Multivitamin] 0.4 mg Tablet PO fluticasone propionate [Flonase Allergy Relief] 50 mcg/actuation spray,suspension 2 spray intranasal DAILY Qty: 16 0RF Rx Instructions: administer into each nostril metformin 500 mg Tablet 500 mg PO BID omeprazole 20 mg Tablet,Delayed Release (Dr/Ec) 20 mg PO DAILY metoprolol succinate 100 mg tablet extended release 24 hr 100 mg PO DAILY citalopram 20 mg tablet 20 mg PO DAILY meclizine 12.5 mg tablet 12.5 mg PO TID PRN (Reason: dizziness) Qty: 14 0RF loperamide [Anti-Diarrheal (loperamide)] 2 mg capsule 2 mg PO Q6H PRN (Reason: loose stool) Qty: 14 0RF dicyclomine 20 mg tablet 20 mg PO TID PRN (Reason: abdominal pain) Qty: 14 0RF ondansetron 4 mg tablet,disintegrating 4 mg PO Q8H PRN (Reason: nausea and vomiting) Qty: 10 0RF <Mary Howard PA-C - Last Filed: 11/20/25 18:31> Follow-up/Referrals: Low Gracia MD [Primary Care Provider, BIOLOGICAL SCIENTIST] Néstor Clements MD [Physician, Orthopedics] <Mary Howard PA-C - Last Filed: 11/20/25 18:31>
[2025-11-20 19:57] VITALS: BP 137/92; PULSE 81; RESP 16; TEMP 36.8; O2SAT 100
[2025-11-20 21:45] VITALS: BP 152/68; PULSE 76; RESP 16; O2SAT 100
== END 2025-11-20 21:47 | disposition home or self-care (01) ==
PROVIDERS: Emergency Provider Physician Assistant; PCP Obstetrics & Gynecology
DX: M23.91 Unspecified internal derangement of right knee (principal); I10 Essential (primary) hypertension; E11.9 Type 2 diabetes mellitus without complications; Z90.49 Acquired absence of other specified parts of digestive tract; Z90.710 Acquired absence of both cervix and uterus; Z79.899 Other long term (current) drug therapy; Z79.84 Long term (current) use of oral hypoglycemic drugs
CPT/HCPCS: 73562; 93971; 99284